=== PATIENT | female | born 1955 | race Caucasian/White ===

== ENCOUNTER 2018-11-26 16:09 | Emergency (ER) | payer BC ==
--- NOTE | 2018-11-26 17:10 | ED ---
Throat Pain/Nasal Congestion - HPI Summary HPI Summary: This patient is an otherwise healthy 63-year-old female with no past medical history who presents to the ED with a mass to the R side of the neck betweeen the submandibular and tonsillar space. The symptoms have been present 1 week. The area has been enlarging and now is concerning for her. She denies any pain with swallowing. She denies any night sweats, fevers, chills. She denies any dysphagia or odynophagia. Denies any SOB or CP. She states she has been feeling otherwise well. She does not wear dentures and has never had dental abscesses. Denies any drooling, wheezing, nasal or sinus discomfort. Denies any muffled voice, however has noted some voice changes. - History of Current Complaint Chief Complaint: EDThroatPain Time Seen by Provider: 11/26/18 16:28 Hx Obtained From: Patient Onset/Duration: Sudden Onset Severity: Moderate Associated Signs And Symptoms: Negative: Dysphagia, Drooling, Wheezing, Sinus Discomfort, Nasal Discharge - Epiglottits Risk Factors Epiglottis Risk Factors: Negative - Allergies/Home Medications Allergies/Adverse Reactions: Allergies Allergy/AdvReac Type Severity Reaction Status Date / Time No Known Allergies Allergy Verified 11/26/18 16:16 Home Medications: Home Medications Ascorbic Acid TAB* [Vitamin C TAB*] 500 mg PO DAILY 11/26/18 [History Confirmed 11/26/18] Ferrous Gluconate [Iron] 236 mg PO DAILY 11/26/18 [History Confirmed 11/26/18] Glucosamine Sulfate [Sangita] 1,500 mg PO DAILY 11/26/18 [History Confirmed ] PMH/Surg Hx/FS Hx/Imm Hx Previously Healthy: Yes Endocrine/Hematology History: Denies: Hx Diabetes, Hx Thyroid Disease Cardiovascular History: Denies: Hx Hypertension Respiratory History: Denies: Hx Asthma, Hx Chronic Obstructive Pulmonary Disease (COPD) GI History: Denies: Hx Ulcer - Surgical History Surgery Procedure, Year, and Place: appy - Immunization History Hx Pertussis Vaccination: No Immunizations Up to Date: Yes Infectious Disease History: No Infectious Disease History: Denies: Hx Clostridium Difficile, Hx Hepatitis, Hx Human Immunodeficiency Virus (HIV), Hx of Known/Suspected MRSA, Hx Shingles, Hx Tuberculosis, Hx Known/ Suspected VRE, Hx Known/Suspected VRSA, History Other Infectious Disease, Traveled Outside the [place] in Last 30 Days - Family History Known Family History: Positive: None - Social History Occupation: Unemployed Lives: With Family Alcohol Use: None Hx Substance Use: No Substance Use Type: Reports: None Hx Tobacco Use: Yes Smoking Status (MU): Former Smoker Review of Systems Negative: Fever, Chills, Fatigue, Skin Diaphoresis Cardiovascular: Other - right sided neck mass without pain Negative: Palpitations, Chest Pain Negative: Shortness Of Breath, Cough Genitourinary: Negative Positive: no symptoms reported, see HPI Negative: Arthralgia, Myalgia Skin: Negative Neurological: Negative All Other Systems Reviewed And Are Negative: Yes Physical Exam Triage Information Reviewed: Yes Vital Signs On Initial Exam: Initial Vitals Temp Pulse Resp BP Pulse Ox 98.4 F 91 12 172/100 98 11/26/18 16:13 11/26/18 16:13 11/26/18 16:13 11/26/18 16:13 11/26/18 16:13 Vital Signs Reviewed: Yes Appearance: Positive: Well-Appearing, Well-Nourished Skin: Positive: Warm, Skin Color Reflects Adequate Perfusion Head/Face: Positive: Normal Head/Face Inspection Eyes: Positive: EOMI, Conjunctiva Clear ENT: Positive: Hoarse voice, Uvula midline. Negative: Pharyngeal erythema, Nasal congestion, Nasal drainage, Tonsillar swelling, Tonsillar exudate, Muffled voice, Dental tenderness, Sinus tenderness Neck: Positive: Supple, Nontender, Enlarged Nodes @ - tonsillar and submandibular Respiratory/Lung Sounds: Positive: Clear to Auscultation, Breath Sounds Present Cardiovascular: Positive: RRR, Pulses are Symmetrical in both Upper and Lower Extremities Musculoskeletal: Positive: Normal, Strength/ROM Intact Neurological: Positive: Sensory/Motor Intact, Alert, Oriented to Person Place, Time, Speech Normal - patient endorses lower voicec/no muffled voice Psychiatric: Positive: Normal, Affect/Mood Appropriate AVPU Assessment: Alert Diagnostics - Vital Signs Vital Signs Temp Pulse Resp BP Pulse Ox 11/26/18 16:13 98.4 F 91 12 172/100 98 - Laboratory Result Diagrams: 11/26/18 18:03 11/26/18 18:03 Lab Statement: Any lab studies that have been ordered have been reviewed, and results considered in the medical decision making process. EENT Course/Dx - Course Course Of Treatment: During the course of treatment, the patient's evaluated for right-sided neck mass. Denies any other complaints or concerns. US obtained: The 3.3 right level to mass is suspicious for metastatic lymphadenopathy. CT neck recommended. Patient is signed out to PAWAN Camacho pending CT. - Diagnoses Provider Diagnoses: Laryngeal mass Discharge - Sign-Out/Discharge Documenting (check all that apply): Sign-Out Patient Signing out patient TO: Elaine Jack Patient Received Moderate/Deep Sedation with Procedure: No - Discharge Plan Condition: Good Disposition: HOME Referrals: [facility] [Outside] Philippe Mendoza MD [Medical Doctor] - Additional Instructions: You need to call ENT office wednesday morning for follow up establish care with primary Return to ED if develop any difficulty breathing, swallowing or any new or worsening symptoms - Billing Disposition and Condition Condition: GOOD Disposition: Home
[2018-11-26 17:33] LABS: Rapid Strep Molecular Negative (Negative)
[2018-11-26 18:11] LABS: ABS Lymphocytes 1.3 10^3/ul (1.0-4.8); ABS Monocytes 0.4 10^3/ul (0-0.8); ABS Neutrophils 3.2 10^3/ul (1.5-7.7); Eosinophil % 0.8 %; Hematocrit 39 % (35-47); Hemoglobin 13.7 g/dL (12.0-16.0); Mean Corpuscular HGB Conc 35 g/dL (31-36); Mean Corpuscular Hemoglobin 33 pg (27-31); Mean Corpuscular Volume 94 fL (80-97); Mean Platelet Volume 8.1 fL (7.4-10.4); Nucleated Red Blood Cells % 0.1; Platelet Count 230 10^3/uL (150-450); Red Blood Count 4.11 10^6 /uL (3.70-4.87); Red Cell Distribution Width 12 % (10-15); White Blood Count 4.9 10^3/uL (3.5-10.8)
[2018-11-26 18:25] LABS: ALT 16 U/L (7-52); AST 23 U/L (13-39); Albumin 4.6 g/dL (3.2-5.2); Albumin/Globulin Ratio 1.4 (1-3); Alkaline Phosphatase 61 U/L (34-104); Anion Gap 7 mmol/L (2-11); Blood Urea Nitrogen 12 mg/dL (6-24); C Reactive Protein < 1.00 mg/L (<8.01); CO2 Carbon Dioxide 26 mmol/L (22-32); Calcium 9.9 mg/dL (8.6-10.3); Chloride 104 mmol/L (101-111); EGFR African American 115.1 (>60); EGFR Non-African American 95.1 (>60); Globulin 3.4 g/dL (2-4); Glucose 106 mg/dL (70-100); Potassium 3.9 mmol/L (3.5-5.0); Sodium 137 mmol/L (135-145)
[2018-11-26] MEDS ORDERED: Iohexol 300* (CONTRAST) 10 ML SDV IV ONE (18:39)
--- NOTE | 2018-11-26 20:02 | ED ---
Progress - Progress Note Progress Note: patient signed out by Adela VILLALTA pending CT for dispo CT shows: IMPRESSION: 1. Large right super laryngeal mass is centered in the hypopharynx obliterating the right piriform sinus direct extension laterally into the right neck encasing the proximal right internal and external carotid arteries and distal flow within the deep aspect of the right sternocleidomastoid muscle and is probably of pharyngeal origin. There is right cervical adenopathy many large nodes adjacent to the mass and is consistent with malignancy. There is slight enlargement of the posterior aspect of the oropharynx with involvement of the right aryepiglottic fold and obliteration of the right piriform sinus and slight extension anteriorly along the superior margin of the thyroid cartilage. 2. Degenerative spondylosis of the cervical spine with varying degrees of spinal and neural foraminal stenosis. Course/Dx - Course Course Of Treatment: During the course of treatment, the patient's evaluated for right-sided neck mass. u/s showed suspicious mass so CT was ordered CT shows layngeal mass. discussed with dr peck who says to have call office wednesday. patient no difficulty breathing or swallowing. no signs of resp distress. explained results with patient. discussed importance of follow up. patient understand and agrees with plan. - Diagnoses Provider Diagnoses: Laryngeal mass Discharge - Sign-Out/Discharge Documenting (check all that apply): Patient Departure, Receiving Sign-Out Receiving patient FROM: Adela Small Patient Received Moderate/Deep Sedation with Procedure: No - Discharge Plan Condition: Good Disposition: HOME Referrals: Philippe Peck MD [Medical Doctor] - [facility] [place] [facility] [place]] Additional Instructions: You need to call ENT office wednesday morning for follow up establish care with primary Return to ED if develop any difficulty breathing, swallowing or any new or worsening symptoms - Billing Disposition and Condition Condition: GOOD Disposition: Home
[2018-11-26 21:19] VITALS: BP 150/100
== END 2018-11-26 21:07 | disposition home or self-care (01) ==
LOC: ED 16:09
DX: J38.7 Other diseases of larynx (principal); M47.892 Other spondylosis, cervical region; M48.02 Spinal stenosis, cervical region; Z87.891 Personal history of nicotine dependence
CPT/HCPCS: 36415; 70491; 76536; 80053; 85025; 86140; 87651; 99282; Q9967

== ENCOUNTER 2019-01-09 11:34 | Observation (INO) | payer BC ==
[2019-01-09] MEDS ORDERED: fentaNYL* 50 MCG/ML 2 ML VIAL (100 MCG VIAL) ONE (12:57)
[2019-01-09] MEDS ORDERED: Midazolam* 1 MG/ML 10 ML VIAL (10 MG) ONE (12:57)
[2019-01-09] MEDS ORDERED: ceFAZolin 2 GM PREMIX in ORs 2 GM/50 ML BAG ONE (13:51)
--- NOTE | 2019-01-09 15:25 | PRO ---
CC: Dr. Jaffe; Dr. Montanez * DATE OF PROCEDURE: 01/09/19 - ROOM #402 PROCEDURE: EGD with PEG tube placement. INDICATION: Dysphagia, odynophagia, head and neck cancer. REFERRING PHYSICIAN: Dr. Jaffe and Dr. Montanez. MEDICATIONS GIVEN: 1. Cefazolin 2 g IV prior to the procedure. 2. 100 mcg IV fentanyl. 3. 10 mg IV Versed. 4. 1% lidocaine for local anesthetic. PROCEDURE IN DETAIL: After the EGD procedure including PEG tube placement was explained to the patient including the risks, benefits, and alternatives, not limited to perforation, surgery and/or were explained to the patient, written consent was then obtained, IV medication was given, and a bite-block was placed between the teeth. An Olympus gastroscope was then inserted into the patient's mouth, advanced down the esophagus, into the stomach, and into the distal duodenum. No abnormalities were seen. The scope was then withdrawn into the stomach, where I insufflated CO2. I tried transillumination, however, I was unable to see the light. However, there was pretty good finger indentation approximately 5 fingerbreadths below and 5 to the left. I moved a little bit more medially and the finger indentation improved. At that point, I marked the spot, cleaned the skin, and using 1% lidocaine on a very small finder needle inserted into the patient's abdominal wall. It easily entered into the stomach cavity. Bubbles of air were then seen. The finder needle was then withdrawn. Approximately 2 to 3 cc of 1% lidocaine were used to anesthetize the tract. A larger trocar needle that was then placed through the exact same location after finger indentation again confirmed proper good placement. The trocar needle came immediately into the stomach. A blue wire was then placed through the trocar needle, grasped the snare and withdrawn from the patient. The PEG tube was then tied onto the end of the blue wire and it was successfully pulled into place. Prior to the procedure when I was navigating the scope through her esophagus and into her stomach, there was some mild hyperemia of the mucosa likely secondary to her radiation. When I performed a second look endoscopy, there were some mucosal hemorrhages in the upper esophagus and in the mid body of the esophagus likely secondary to the bumper being pulled down through this area and causing some irritation and bleeding. There was no active bleeding seen. The PEG tube was in proper position within her stomach. The scope was then withdrawn from the patient. She tolerated the procedure well and will be admitted to the hospital as per my routine protocol. IMPRESSION: 1. Complete upper endoscopy to the distal duodenum with successful PEG tube placement. 2. PEG tube placement. 3. She will be admitted to the hospital for pain control, nutrition consult, PEG tube teaching by the nursing staff. If all goes according to plan, she can be discharged tomorrow morning after having been seen by GI. [id number]/[facility] #: [id number] BERNARDO
[2019-01-09] MEDS ORDERED: Ondansetron INJ* 2 MG/ML VIAL IV PRN (15:39)
[2019-01-09] MEDS ORDERED: Morphine INJ* 2 MG/ML 1 ML SYRINGE (TWO MG - NEW SYRINGE VERSION) IV PRN (15:39)
[2019-01-09] MEDS ORDERED: Acetaminophen TAB* 325 MG PO PRN (15:39)
[2019-01-09] MEDS ORDERED: Acetaminophen TAB* 325 MG ONE (16:22)
[2019-01-09] MEDS ORDERED: Lidocaine 2% VISCOUS* 15 ML UDC SWISH SPIT PRN (16:27)
--- NOTE | 2019-01-09 16:33 | PN ---
Progress Note - Progress Note Date of Service: 01/09/19 Note: 23 hr OBV re: dysphagia, s/p PEG tube today, needs nutrition consult, pain control with IV since NPO, PEG teaching EGD with PEG was successful; esophagus is friable d/t XRT admit orders in; has pain control, IVF; will be NPO until cleared by Dr Christianson on Wednesday am Greg Ortiz MD [facility] [phone]
[2019-01-09] MEDS: NS 0.9% 1000 ML** 1,000 ML IV SCH (17:31)
[2019-01-09] MEDS: Gabapentin CAP(*) 300 MG PO SCH (20:44)
[2019-01-10 05:42] LABS: ABS Eosinophils 0.1 10^3/ul (0-0.6); ABS Lymphocytes 0.2 10^3/ul (1.0-4.8); ABS Monocytes 0.4 10^3/ul (0-0.8); ABS Neutrophils 1.5 10^3/ul (1.5-7.7); Eosinophil % 2.4 %; Hematocrit 29 % (35-47); Hemoglobin 10.6 g/dL (12.0-16.0); Lymphocyte % 10.8 %; Mean Corpuscular HGB Conc 36 g/dL (31-36); Mean Corpuscular Hemoglobin 34 pg (27-31); Mean Corpuscular Volume 93 fL (80-97); Mean Platelet Volume 6.8 fL (7.4-10.4); Platelet Count 132 10^3/uL (150-450); Red Blood Count 3.15 10^6 /uL (3.70-4.87); Red Cell Distribution Width 12 % (10-15); White Blood Count 2.1 10^3/uL (3.5-10.8)
[2019-01-10] MEDS: NS 0.9% 1000 ML** 1,000 ML IV SCH (05:58)
[2019-01-10] MEDS: Gabapentin CAP(*) 300 MG PO SCH (08:15)
[2019-01-10 09:27] LABS: Albumin 3.4 g/dL (3.2-5.2); Calcium 8.5 mg/dL (8.6-10.3); Potassium 3.9 mmol/L (3.5-5.0); Total Bilirubin 0.7 mg/dL (0.2-1.0)
[2019-01-10 09:33] LABS: Albumin/Globulin Ratio 1.6 (1-3); BUN/Creatinine Ratio 15.4 (8-20); EGFR African American 143.7 (>60); EGFR Non-African American 118.7 (>60); Globulin 2.1 g/dL (2-4); Total Protein 5.5 g/dL (6.4-8.9)
[2019-01-10] MEDS ORDERED: NS 0.9% 1000 ML** 1,000 ML IV ONE (11:36)
[2019-01-10] MEDS ORDERED: Dexamethasone IV* 4 MG/ML 5 ML VIAL (20 MG) ONE (12:49)
[2019-01-10] MEDS ORDERED: Dexamethasone IV* 12 MG in PREMIX* 0 ML IVPB ONE (13:00)
[2019-01-10] MEDS ORDERED: OLANzapine TAB* 5 MG PO ONE (13:00)
[2019-01-10] MEDS ORDERED: APREPITANT IV* 130 MG in PREMIX* 0 ML IV ONE (13:00)
[2019-01-10] MEDS ORDERED: Palonosetron* 0.25 MG in PREMIX* 0 ML IV ONE (13:00)
[2019-01-10 13:16] LABS: Magnesium 1.7 mg/dL (1.9-2.7)
[2019-01-10] MEDS ORDERED: CISPLATIN IVPB ONE (14:00)
[2019-01-10] MEDS ORDERED: NS 0.9% IVPB ONE (14:00)
[2019-01-10 14:14] VITALS: BP 110/61
--- NOTE | 2019-01-10 22:27 | DS ---
DISCHARGE SUMMARY: DATE OF ADMISSION: 01/09/19 DATE OF DISCHARGE: 01/10/19 PRIMARY DISCHARGE DIAGNOSES: 1. Pharyngeal carcinoma. 2. Status post PEG tube placement. This 63-year-old woman had a PEG tube placed yesterday. She had initiated radiation treatment and chemotherapy 3 weeks ago. Chemotherapy rounds are to occur every 3 weeks and were delayed 24 hours to allow for the PEG tube to be placed. PEG placement was apparently successful yesterday. There was little bit of esophageal irritation. This morning, she feels generally well. She has no fever. Pulse is 81 and blood pressure 110/61. Examination of the abdomen shows PEG tube exiting at about 6 cm in the upper abdomen just to the left of midline. There was some tenderness in the area around the tube, but no discoloration, no bleeding. Bowel sounds are present. She had not passed any gas or stool. It appeared appropriate to began a diet. As per the previous plan between Dr. Ortiz and the oncology service, she will be receiving chemotherapy later today. Her current counts as of today were white count 2.1, hemoglobin 10.6, hematocrit 29, platelets 132 and this is known to the oncology service. LFTs are normal. She is not needing the tube for hydration or nutrition at the moment, but it is immediately available. Followup - will be with the oncology office. Her usual medications have not been changed. [id number]/[facility] #: [id number] MTDD
== END 2019-01-10 17:45 | disposition home or self-care (01) ==
LOC: ENDO 11:34 → MED 17:07
PROVIDERS: ADMIT Internal Medicine Gastroenterology; ATTEND Internal Medicine Gastroenterology
DX: C14.0 Malignant neoplasm of pharynx, unspecified (principal); R13.14 Dysphagia, pharyngoesophageal phase; Z92.21 Personal history of antineoplastic chemotherapy
CPT/HCPCS: 36415; 80053; 83735; 85025; 99156; 99157; A9270-GY; G0378; J0185; J0690; J1100; J2250; J2469; J3010; J9060

== ENCOUNTER 2019-02-02 20:13 | Inpatient (IN) | payer BC ==
--- OUTSIDE RECORDS SUMMARY | 2019-02-02 20:32 | XMS REPORT | Continuity of Care Document ---
:1955 External Reference #:[id number] Author Name Greg Ortiz MD Address [facility] [place] [address] Care Team Providers Name Role Phone Wero Montanez MD - Radiation Oncology Care Team Information Lot Boss Unavailable Problems Active Problems Provider Date Esophageal dysphagia Greg Ortiz MD Onset: 01/04/2019 Social History Type Date Description Comments Sex Unknown Tobacco Use Start: Unknown End: Unknown Patient is a former smoker Smoking Status Reviewed: 01/04/19 Patient is a former smoker Allergies, Adverse Reactions, Alerts Description No Known Drug Allergies Medications Active Medications SIG Qnty Indications Ordering Provider Date Cecilia Arambula NP [id number] Suspension Magnesium Oxide Take 1 Tablet By Unknown 400mg Mouth Twice Daily Tablets Immunizations Description No Information Available Vital Signs Date Vital Result Comment 01/04/2019 9:29am Height 67 inches 5'7" Weight 131.00 lb BP Systolic 132 mmHg BP Diastolic 73 mmHg Heart Rate 83 /min BMI (Body Mass Index) 20.5 kg/m2 Results Description No Information Available Procedures Description No Information Available Medical Devices Description No Information Available Encounters Description No Information Available Assessments Date Code Description Provider 01/04/2019 R13.14 Dysphagia, pharyngoesophageal phase Greg Ortiz MD Plan of Treatment 01/04/2019 - Greg Ortiz, MDR13.14 Dysphagia, pharyngoesophageal phaseComments:RISKS AND BENEFITS OF THE PROCEDURE WERE DISCUSSED WITH PATIENT. I had a very long discussion with the patient regarding her symptoms we discussed the PEG tube the rationale behind the PEG tube in detail she does need a feeding tube I will make arrangements for it as soon as possible. She understands she will be admitted to the hospital afterwards Functional Status Description No Information Available Mental Status Description No Information Available Referrals Description No Information Available
--- OUTSIDE RECORDS SUMMARY | 2019-02-02 20:32 | XMS REPORT | Continuity of Care Document ---
:1955 External Reference #:[id number] Author Name Philippe Mednoza MD Address [address] [place] [address] Problems Active Problems Provider Date Localized swelling, mass and lump, neck Philippe Mendoza MD Onset: 11/28/2018 Difficulty speaking Philippe Mendoza MD Onset: 11/28/2018 Social History Type Date Description Comments Sex Unknown Tobacco Use Start: Unknown Current Cigarette Smoker Tobacco Use Start: Unknown Never Smoked Cigars Tobacco Use Start: Unknown Never Smoked A Pipe Smokeless Tobacco Never Used Smokeless Tobacco ETOH Use Denies alcohol use Allergies, Adverse Reactions, Alerts Description No Known Drug Allergies Medications Description No Active Medications Immunizations Description No Information Available Vital Signs Date Vital Result Comment 12/12/2018 10:01am Weight 134.00 lb Weight 60.782 kg Height 65 inches 5'5" Height in cm's 165.1 cm BMI (Body Mass Index) 22.3 kg/m2 11/28/2018 11:44am Weight 134.00 lb Weight 60.782 kg Height 65 inches 5'5" Height in cm's 165.1 cm BMI (Body Mass Index) 22.3 kg/m2 Results Test Date Facility Test Result H/L Range Note Laboratory test 11/28/2018 [facility] Cytology SEE RESULT 1 finding c/o [facility] of Laboratories [employer] [place] [address] [phone] 1 SEE RESULT BELOW Name: DEEPA MAN : [address]: Atilio Mendoza MD Acct: [id number] Unit: [id number] AGE: 63 Location: LAB Re11/28/18 SEX: F Status: REG REF SPEC: [id number] TRICIA: 11/28/[address]: Atilio Mendoza MD REQ: [id number] RECD: 11/28/18-140 STATUS: FRANCIS ROBLEDO DR: Sander Ortiz MD _ ORDERED: FNA INTERP RPT, FNA BY PALP, LEVEL 4, CYTO ADEQ-1ST P, IMMUNO-FIRST , IMMUNO-ADDL/3 FINAL DIAGNOSIS Neck, right, fine needle aspiration by palpation: --Malignant. --Metastatic Squamous cell carcinoma. Comment: The aspirate smears are abundantly cellular and demonstrates cohesive cytologically malignant epithelial elements demonstrating ample variable cytoplasm with focal keratinization and moderate to marked nuclear pleomorphism. Background demonstrates lymphoid elements, connective tissue and muscle. The following immunohistochemical stains were performed with appropriate controls on formalin fixed cell block material CK 5/6 strong positive P63 strong positive P16 (HPV) negative Melan-A negative. The morphologic features and immunohistochemical stains support the above rendered diagnosis. Correlation with clinical and imaging findings will be most helpful in identifying a primary source of this metastatic neoplasm. CONTINUED ON NEXT PAGE DEPARTMENT OF PATHOLOGY, [address] [place] [address] Sander Ortiz M.D. Director [facility] # [id number] RUN DATE: 11/29/18 [facility] LAB LIVE PAGE 2 Patient: DEEPA MAN [id number] (Continued) SPECIMEN COMMENTS (Continued) The procedure was explained to and understood by the patient. Signed consent was obtained and a time out procedure was performed at the bedside to verify patient identity and biopsy site. Fine needle aspiration biopsy was performed times 2 with a 25 gauge needle on 2.5 cm firm fixed right upper neck mass. Adequacy was assessed by fast stain technique. The procedure was tolerated well without complications. A cell block was prepared in the evaluation of this specimen. Smears and cell block reveal similar findings. 1. NECK - RIGHT UPPER NECK MASS FINE NEEDLE ASPIRATION BY PALPATION CLINICAL HISTORY 2.5 cm firm fixed right upper neck mass. IMMEDIATE INTERPRETATION Passes 1 2-adequate GROSS DESCRIPTION Fine needle aspiration by palpation x 2 passes with 2 alcohol fixed slide(s) and needle rinse in formalin for cell block. Signed by and Reported on: Sander Ortiz MD 10/12 1535 END OF REPORT DEPARTMENT OF PATHOLOGY, [address] [place] [address] Sander Ortiz M.D. Director [facility] # [id number] Procedures Date Code Description Status 11/28/2018 31699 Fiberoptic Laryngoscopy Completed Medical Devices Description No Information Available Encounters Type Date Location Provider Dx Diagnosis Office Visit 12/12/2018 [place] Philippe Mendoza C32.1 Malignant neoplasm 10:30a 04/26/07 MD of supraglottis R22.1 Localized swelling, mass and lump, neck Office Visit 11/28/2018 11:30a [place] Philippe Mendoza R22.1 Localized 04/26/07 swelling, mass and lump, neck R49.0 Dysphonia Assessments Date Code Description Provider 12/12/2018 C32.1 Malignant neoplasm of supraglottis Philippe Mendoza MD 12/12/2018 R22.1 Localized swelling, mass and lump, neck Philippe Mendoza MD 11/30/2018 C32.1 Malignant neoplasm of supraglottis Philippe Mendoza MD 11/28/2018 R22.1 Localized swelling, mass and lump, neck Philippe Mendoza MD 11/28/2018 R49.0 Dysphonia Philippe Mendoza MD Plan of Treatment Future Appointment(s):12/16/2018 9:15 am - Philippe Mendoza MD at [place] - Philippe Mendoza MDC32.1 Malignant neoplasm of supraglottisComments:Patient is here for discussion of the management of 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 I discussed at length radiation therapy, chemotherapy and options of treatment with surgical management she is going to proceed with further evaluation with PET scan and will have a treatment option of radiation and chemotherapy recheck back after completion of therapy.R22.1 Localized swelling, mass and lump, neck Functional Status Description No Information Available Mental Status Description No Information Available Referrals Refer to Reason for Referral Status Appt Date Wero Montanez M.D. Metastatic CA Closed 12/07/2018 [facility] [place] Radiation Oncology [address] [place] [address] [phone]
[2019-02-02] MEDS ORDERED: NS 0.9% 1000 ML** 1,000 ML IV ONE (22:27)
[2019-02-02] MEDS ORDERED: Ondansetron INJ* 2 MG/ML VIAL IV ONE (22:27)
[2019-02-02 22:38] LABS: ABS Lymphocytes 0.1 10^3/ul (1.0-4.8); ABS Monocytes 0.4 10^3/ul (0-0.8); ABS Neutrophils 2.1 10^3/ul (1.5-7.7); Eosinophil % 0.1 %; Hematocrit 24 % (35-47); Hemoglobin 8.7 g/dL (12.0-16.0); Lymphocyte % 3.6 %; Mean Corpuscular HGB Conc 36 g/dL (31-36); Mean Corpuscular Hemoglobin 35 pg (27-31); Mean Corpuscular Volume 95 fL (80-97); Mean Platelet Volume 7.2 fL (7.4-10.4); Platelet Count 218 10^3/uL (150-450); Red Blood Count 2.52 10^6 /uL (3.70-4.87); Red Cell Distribution Width 15 % (10-15); White Blood Count 2.6 10^3/uL (3.5-10.8)
[2019-02-02 22:48] LABS: ALT 21 U/L (7-52); AST 22 U/L (13-39); Albumin 3.5 g/dL (3.2-5.2); Albumin/Globulin Ratio 1.3 (1-3); Alkaline Phosphatase 54 U/L (34-104); Anion Gap 7 mmol/L (2-11); BUN/Creatinine Ratio 35.1 (8-20); Blood Urea Nitrogen 26 mg/dL (6-24); C Reactive Protein 3.01 mg/L (<8.01); CO2 Carbon Dioxide 34 mmol/L (22-32); Calcium 8.6 mg/dL (8.6-10.3); Chloride 91 mmol/L (101-111); EGFR African American 95.6 (>60); Globulin 2.6 g/dL (2-4); Glucose 111 mg/dL (70-100); Magnesium 1.1 mg/dL (1.9-2.7); Potassium 3.2 mmol/L (3.5-5.0); Sodium 132 mmol/L (135-145); Total Protein 6.1 g/dL (6.4-8.9)
[2019-02-02] MEDS ORDERED: Magnesium Sulf 4 GM/100 ML IV* 4,000 MG/100 ML BAG IVPB ONE (22:51)
--- NOTE | 2019-02-02 22:55 | ED ---
Complex/Multi-Sys Presentation - HPI Summary HPI Summary: Pt is a 63 y/o F w hx throat cancer on chemo, G tube, presenting to the ED for a chief complaint of nausea and vomiting which worsened the night of 02/01/19. Pt previously took Zofran for nausea with no relief. Pt states she cannot keep any food down so she has only had water. Pt denies fever, diarrhea, abdominal pain, or changes in bowel movements. Pt last had a chemotherapy treatment on 11/11 for a diagnosis of throat cancer. Pt has had 3 chemo treatments since initial diagnosis. Pt has a radiation therapy session on 02/03/19. During previous chemotherapy sessions, pt denies vomiting during previous sessions. Pt has a G tube and gets most of nutrition and medications through her tube. She has not put anything in tube today 2/2 nausea/vomiting. Pt sees Dr. Jaffe in oncology. - History Of Current Complaint Chief Complaint: EDNauseaVomitDiarrh Time Seen by Provider: 02/02/19 22:19 Hx Obtained From: Patient Onset/Duration: Sudden Onset, Still Present Timing: Constant Severity Currently: Moderate Severity Initially: Moderate Associated Signs And Symptoms: Positive: Nausea, Vomiting, Other - Negative changes in bowel movements. Negative: Diarrhea, Abdominal Pain, Fever - Allergies/Home Medications Allergies/Adverse Reactions: Allergies Allergy/AdvReac Type Severity Reaction Status Date / Time No Known Allergies Allergy Verified 11/26/18 16:16 PMH/Surg Hx/FS Hx/Imm Hx Previously Healthy: Yes Endocrine/Hematology History: Denies: Hx Diabetes, Hx Thyroid Disease Cardiovascular History: Denies: Hx Hypertension Respiratory History: Denies: Hx Asthma, Hx Chronic Obstructive Pulmonary Disease (COPD) GI History: Denies: Hx Ulcer Sensory History: Denies: Hx Contacts or Glasses, Hx Hearing Aid Opthamlomology History: Denies: Hx Contacts or Glasses, Hx Legally Blind EENT History: Denies: Hx Deafness - Cancer History Cancer Type, 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 - Surgical History Surgical History: Yes Surgery Procedure, Year, and Place: appy Infectious Disease History: No Infectious Disease History: Denies: Hx Clostridium Difficile, Hx Hepatitis, Hx Human Immunodeficiency Virus (HIV), Hx of Known/Suspected MRSA, Hx Shingles, Hx Tuberculosis, Hx Known/ Suspected VRE, Hx Known/Suspected VRSA, History Other Infectious Disease, Traveled Outside the [place] in Last 30 Days - Family History Known Family History: Negative: Diabetes - Social History Alcohol Use: None Hx Substance Use: No Substance Use Type: Reports: None Hx Tobacco Use: Yes Smoking Status (MU): Former Smoker Review of Systems Negative: Fever Positive: Vomiting, Nausea. Negative: Abdominal Pain, Diarrhea All Other Systems Reviewed And Are Negative: Yes Physical Exam - Summary Physical Exam Summary: Constitutional: Chronically ill-appearing, Alert. (-) Distressed Skin: Warm, Dry HENT: Normocephalic; Atraumatic. Mild posterior pharynx erythema Eyes: Conjunctiva normal Neck: Musculoskeletal ROM normal neck. (-) JVD, (-) Stridor, (-) Nuchal rigidity Cardio: Rhythm regular, rate normal, Heart sounds normal; Intact distal pulses; Radial pulses are 2+ and symmetric. (-) Murmur Pulmonary/Chest wall: Effort normal. (-) Respiratory distress, (-) Wheezes, (-) Rales Abd: Soft, (-) tenderness, (-) Distension, (-) Guarding, (-) Rebound. G tube site that is non-tender Musculoskeletal: (-) Edema Lymph: (-) Cervical adenopathy Neuro: Alert, Oriented x3 Psych: Mood and affect Normal Triage Information Reviewed: Yes Vital Signs On Initial Exam: Initial Vitals Temp Pulse Resp BP Pulse Ox 99.2 F 90 16 133/88 97 02/02/19 20:15 02/02/19 20:15 02/02/19 20:15 02/02/19 20:15 02/02/19 20:15 Vital Signs Reviewed: Yes Procedures - Sedation Patient Received Moderate/Deep Sedation with Procedure: No Diagnostics - Vital Signs Vital Signs Temp Pulse Resp BP Pulse Ox 02/02/19 20:15 99.2 F 90 16 133/88 97 - Laboratory Lab Results: Lab Results 02/02/19 02/02/19 Range/Units 22:24 22:24 WBC 2.6 L (3.5-10.8) 10^3/uL RBC 2.52 L (3.70-4.87) 10^6 /uL Hgb 8.7 L (12.0-16.0) g/dL Hct 24 L (35-47) % MCV 95 (80-97) fL MCH 35 H (27-31) pg MCHC 36 (31-36) g/dL RDW 15 (10-15) % Plt Count 218 (150-450) 10^3/uL MPV 7.2 L (7.4-10.4) fL Neut % (Auto) 81.4 % Lymph % (Auto) 3.6 % [place] % (Auto) 14.9 % Eos % (Auto) 0.1 % Baso % (Auto) 0.0 % Absolute Neuts (auto) 2.1 (1.5-7.7) 10^3/ul Absolute Lymphs (auto) 0.1 L (1.0-4.8) 10^3/ul Absolute Monos (auto) 0.4 (0-0.8) 10^3/ul Absolute Eos (auto) 0.0 (0-0.6) 10^3/ul Absolute Basos (auto) 0.0 (0-0.2) 10^3/ul Absolute Nucleated RBC 0.0 10^3/ul Nucleated RBC % 0.0 Sodium 132 L (135-145) mmol/L Potassium 3.2 L (3.5-5.0) mmol/L Chloride 91 L (101-111) mmol/L Carbon Dioxide 34 H (22-32) mmol/L Anion Gap 7 (2-11) mmol/L BUN 26 H (6-24) mg/dL Creatinine 0.74 (0.51-0.95) mg/dL Est GFR ( Amer) 95.6 (>60) Est GFR (Non-Af Amer) 79.0 (>60) BUN/Creatinine Ratio 35.1 H (8-20) Glucose 111 H (70-100) mg/dL Calcium 8.6 (8.6-10.3) mg/dL Magnesium 1.1 L (1.9-2.7) mg/dL Total Bilirubin 0.80 (0.2-1.0) mg/dL AST 22 (13-39) U/L ALT 21 (7-52) U/L Alkaline Phosphatase 54 (34-104) U/L C-Reactive Protein 3.01 (<8.01) mg/L Total Protein 6.1 L (6.4-8.9) g/dL Albumin 3.5 (3.2-5.2) g/dL Globulin 2.6 (2-4) g/dL Albumin/Globulin Ratio 1.3 (1-3) Lipase < 10 L (11.0-82.0) U/L Result Diagrams: 02/02/19 22:24 02/02/19 22:24 Lab Statement: Any lab studies that have been ordered have been reviewed, and results considered in the medical decision making process. Complex Multi-Symp Course/Dx Course Of Treatment: 63 y/o F w hx throat cancer on active chemo/rad p/w n/v. - Physical exam with dry mucous membranes, mildly erythematous posterior oropharynx. Abdomen soft. Suspect secondary to chemotherapy. We'll give IV fluids and Zofran and check electrolytes. Mg 1.1, given 4 mg, K 3.2 given 40 IV. admit [place] [facility] [place] and electrolyte abnormalities. - Diagnoses Provider Diagnoses: Vomiting, Dehydration, Hypomagnesemia Discharge ED - Sign-Out/Discharge Documenting (check all that apply): Patient Departure - Admit - Discharge Plan Condition: Stable Disposition: ADMITTED TO [facility] Referrals: [facility] [Outside] - Billing Disposition and Condition Condition: STABLE Disposition: Admitted to [facility] - Attestation Statements Document Initiated by Jessiibe: Yes Documenting Scribe: Elizabeth Kelley Provider For Whom Alicia is Documenting (Include Credential): Kofi Koo MD Scribe Attestation: I, Elizabeth Kelley, scribed for Kofi Koo MD on 02/03/19 at 0220. Scribe Documentation Reviewed: Yes Provider Attestation: The documentation as recorded by the Elizabeth merino accurately reflects the service I personally performed and the decisions made by me, Kofi Koo MD Status of Scribe Document: Viewed Consult Consult: At 23:56, I spoke with Dr. Awan who agrees to admit the pt to [facility] [place].
[2019-02-02] MEDS: KCL 20 MEQ/100 ML IVPREMIX* 20 MEQ/100 ML BAG IV SCH (23:37)
[2019-02-03] MEDS ORDERED: Metoclopramide IV* 5 MG/ML 2 ML VIAL IV PRN (02:02)
[2019-02-03] MEDS: KCL 20 MEQ/100 ML IVPREMIX* 20 MEQ/100 ML BAG IV SCH (02:06)
[2019-02-03] MEDS ORDERED: Metoclopramide IV* 5 MG/ML 2 ML VIAL ONE (02:10)
[2019-02-03 02:41] LABS: Urine Appearance Clear; Urine Bilirubin Negative (Negative); Urine Blood Negative (Negative); Urine Color Yellow; Urine Glucose Negative (Negative); Urine Ketones Negative (Negative); Urine Nitrite Negative (Negative); Urine Protein Negative (Negative); Urine Specific Gravity 1.013 (1.010-1.030); Urine Urobilinogen Negative (Negative)
[2019-02-03] MEDS ORDERED: Lidocaine 2% VISCOUS* 15 ML UDC PO ONE (03:02)
[2019-02-03] MEDS ORDERED: Lidocaine 2% VISCOUS* 15 ML UDC ONE (03:03)
[2019-02-03] MEDS: NS 0.9% 1000 ML** 1,000 ML IV SCH ×3 (03:56→20:07)
--- NOTE | 2019-02-03 04:23 | HP ---
CC: Dr. Serge Jaffe * ADMISSION HISTORY AND PHYSICAL: DATE OF ADMISSION: 02/03/19 CHIEF COMPLAINT: Intractable vomiting. HISTORY OF PRESENT ILLNESS: This is a 63-year-old female with past medical history of hypopharyngeal carcinoma unresectable, has had esophageal dysphagia, recently underwent PEG tube placement, has been started on chemo and radiation since November. Received her last chemotherapy on Wednesday, ever since then she has been having recurrent episodes of vomiting, unable to keep anything down even with the tube feeding that she gets and has not been alleviated by any nausea medications, so finally decided to come to the ER for further evaluation. She otherwise offers no accompanying complaints such as abdominal pain, chest pain, shortness of breath, numbness, tingling, weakness, any urinary dysfunction, fever, or chills. PAST MEDICAL HISTORY: As mentioned, hypopharyngeal carcinoma with esophageal dysfunction, status post G-tube placement in December. Currently, on chemo and radiation. Chemo is every 2 weeks on Wednesday and radiation is Wednesday to Wednesday everyday. PAST SURGICAL HISTORY: She has had multiple endoscopies and she has G-tube placement being the most recent surgical history. HOME MEDICATIONS: The patient is only on nystatin suspension 4 times a day. ALLERGIES: The patient is not allergic to any medications. FAMILY HISTORY: Noncontributory for the current condition. SOCIAL HISTORY: She quit smoking this summer when she was diagnosed with cancer , prior to that only smoked about 2 to 3 cigarettes a day for 20 years. Denies any alcohol or drug use. She lives alone and is full code and her son, Haider, is her surrogate decision maker. REVIEW OF SYSTEMS: A 14-point review of systems did not reveal any new information other than what is stated in the HPI. PHYSICAL EXAMINATION GENERAL: The patient is awake, alert, oriented x3, did not appear to be in any acute respiratory distress. VITAL SIGNS: In the ER, temperature was noted to be 99.2, BP was noted to be 133/88, heart rate 90, respiration rate 16, saturating 97% on room air. HEAD AND NECK: Atraumatic, normocephalic. Bilateral pupils are reactive. Oral mucosa was dry. Neck: Supple. No jugular venous distention. LUNGS: Clear to auscultation bilaterally. No wheezing, rhonchi, or rales. HEART: S1, S2. Regular rate and rhythm. ABDOMEN: There is a G-tube in place with tube feeding still present. The patient may not have flushed it. EXTREMITIES: No cyanosis, clubbing, or edema. LABORATORY DATA: CBC showed WBC of 2.6, hemoglobin of 8.7, hematocrit of 24, platelet count of 218,000. Comprehensive metabolic panel shows sodium minimal decrease at 132, potassium low at 3.7, chloride low at 91, bicarb elevated at 34. BUN elevated at 26, creatinine normal at 0.74, random glucose minimally elevated at 111. Magnesium low at 1.1. LFTs were otherwise within normal limits. IMPRESSION: This is a 63-year-old female with hypopharyngeal carcinoma and dysphagia status post PEG, here due to intractable vomiting severe enough to cause electrolyte abnormalities. ASSESSMENT: 1. Intractable vomiting likely secondary to chemotherapy. Hydrate the patient , IV fluids, potassium and started the patient on Reglan as the patient stated that the Zofran did not work, neither did the Compazine and observe the patient overnight in the hospital. If her symptoms improve, we could consider discharging her on Reglan. 2. Multiple electrolyte abnormalities as mentioned above. I will correct them and replace them. 3. Pancytopenia, especially with low white count and low hemoglobin, likely secondary to recent chemo. Hematology did take over the case in the morning. They can further follow up the patient's repeat CBC and any further recommendation based on Hematology. 4. DVT prophylaxis with sequential compression device. 5. Code status. Full code and son, Haider, is the healthcare proxy. [id number]/CPS #: [id number] MTDD
[2019-02-03] MEDS ORDERED: Melatonin 3 MG TAB PO ONE (05:00)
[2019-02-03 06:22] LABS: ABS Lymphocytes 0.1 10^3/ul (1.0-4.8); ABS Monocytes 0.4 10^3/ul (0-0.8); ABS Neutrophils 2.2 10^3/ul (1.5-7.7); Eosinophil % 0.1 %; Hematocrit 24 % (35-47); Hemoglobin 8.8 g/dL (12.0-16.0); Lymphocyte % 4.4 %; Mean Corpuscular HGB Conc 36 g/dL (31-36); Mean Corpuscular Hemoglobin 35 pg (27-31); Mean Corpuscular Volume 96 fL (80-97); Mean Platelet Volume 7.5 fL (7.4-10.4); Platelet Count 209 10^3/uL (150-450); Red Blood Count 2.55 10^6 /uL (3.70-4.87); Red Cell Distribution Width 16 % (10-15); White Blood Count 2.7 10^3/uL (3.5-10.8)
[2019-02-03 06:35] LABS: BUN/Creatinine Ratio 30.4 (8-20); Calcium 8.4 mg/dL (8.6-10.3); EGFR African American 103.6 (>60); EGFR Non-African American 85.7 (>60); Magnesium 2.1 mg/dL (1.9-2.7); Potassium 3.5 mmol/L (3.5-5.0)
[2019-02-03] MEDS ORDERED: Lorazepam PYXIS KEY PRN (09:35)
--- NOTE | 2019-02-03 09:35 | PN ---
Progress Note - Progress Note Date of Service: 02/03/19 SOAP: Subjective: []Refractory nausea. Started yesterday and will not stop. nausea, vomiting overnight. Had been using PEG tube only, no po. Off tube feeds at this time. Throat not to bad. Has completed XRT Sodium Chloride (Ns 0.9% 1000 Ml) 1,000 mls @ 125 mls/hr IV PER RATE BRIAN Last Admin: 02/03/19 03:56 Dose: 125 mls/hr Dexamethasone Sodium Phosphate (20 mg/ Sodium Chloride) 55 mls @ 210 mls/hr IVPB ONCE ONE Stop: 02/03/19 09:43 Palonosetron 0.25 mg/ Sodium (Chloride) 55 mls @ 165 mls/hr IVPB ONCE ONE Stop: 02/03/19 09:48 Potassium Chloride (Potassium Chloride 10 Meq/50 Ml Ivpremix*) 10 meq in 50 mls @ 50 mls/hr IV Q1H BRIAN Stop: 02/03/19 13:59 Metoclopramide HCl (Reglan Iv*) 10 mg IV Q4H PRN PRN Reason: NAUSEA Last Admin: 02/03/19 02:11 Dose: 10 mg Nystatin (Nystatin Suspension*) 500,000 units PO QID BRIAN Scopolamine (Transderm-Scop 1.5 Mg Patch*) 1 patch TRANSDERM Q72H BRIAN Objective: [] Vital Signs Temp Pulse Resp BP Pulse Ox 0 F 0 0 0/0 0 02/03/19 03:24 02/03/19 03:24 02/03/19 03:24 02/03/19 03:24 02/03/19 03:24 HEENT: Dry and XRT changes, no thrush, not much congestion. CTA RRR S1D2 +BS PEG intact Ext w/o c/c/e Neuro AAOx3 Assessment: []Refectory nausea at completion of XRT and after HD Cis Cy #3. Plan: []1. Continue Hydration and replete K 2. Nausea: - Dex 20 mg IV x 1 and Aloxi 0.25 mg IV x 1 - Scopolamine patch - Hold Reglan, Ativan 1 mg IV prn q8 nausea 3. Hold PEG today, will try and re-start tomorrow 4. Discharge home when feeling better 5. PT/OT tomorrow.
[2019-02-03] MEDS: Nystatin SUSPENSION* 100000 UNITS/ML 5 ML UDC PO SCH ×4 (09:55→20:07)
[2019-02-03] MEDS ORDERED: Dexamethasone IV* 20 MG in NS 0.9% 50 ML* 50 ML IVPB ONE (10:00)
[2019-02-03] MEDS ORDERED: Palonosetron* 0.25 MG in NS 0.9% 50 ML* 50 ML IVPB ONE (10:00)
[2019-02-03] MEDS ORDERED: Dexamethasone IV* 4 MG/ML 5 ML VIAL (20 MG) ONE (10:03)
[2019-02-03] MEDS: Scopolamine 1.5 mg* PATCH TRANSDERM SCH (10:07)
[2019-02-03] MEDS: KCL 10 MEQ/50 ML IVPREMIX* 10 MEQ/50 ML BAG IV SCH ×4 (11:18→15:55)
[2019-02-03] MEDS ORDERED: HYDROmorphone INJ* 0.5 MG/0.5 ML SYRINGE IV SLOW PU PRN (15:59)
[2019-02-03] MEDS: LORazepam INJ* 2 MG/ML 1 ML VIAL IV PUSH PRN (16:22)
[2019-02-03] MEDS: HYDROmorphone INJ1* 1 MG/ML SYRINGE IV SLOW PU PRN (21:40)
[2019-02-04] MEDS: LORazepam INJ* 2 MG/ML 1 ML VIAL IV PUSH PRN ×3 (05:37→20:09)
[2019-02-04] MEDS: HYDROmorphone INJ1* 1 MG/ML SYRINGE IV SLOW PU PRN ×4 (05:38→20:10)
[2019-02-04] MEDS: NS 0.9% 1000 ML** 1,000 ML IV SCH (05:41)
[2019-02-04 06:58] LABS: ABS Lymphocytes 0.1 10^3/ul (1.0-4.8); ABS Monocytes 0.5 10^3/ul (0-0.8); ABS Neutrophils 2.9 10^3/ul (1.5-7.7); Hematocrit 23 % (35-47); Hemoglobin 8.3 g/dL (12.0-16.0); Lymphocyte % 3.6 %; Mean Corpuscular HGB Conc 37 g/dL (31-36); Mean Corpuscular Hemoglobin 35 pg (27-31); Mean Corpuscular Volume 96 fL (80-97); Mean Platelet Volume 7.3 fL (7.4-10.4); Nucleated Red Blood Cells % 0.1; Platelet Count 211 10^3/uL (150-450); Red Blood Count 2.36 10^6 /uL (3.70-4.87); Red Cell Distribution Width 15 % (10-15); White Blood Count 3.5 10^3/uL (3.5-10.8)
[2019-02-04 07:15] LABS: Albumin 3.1 g/dL (3.2-5.2); Albumin/Globulin Ratio 1.2 (1-3); BUN/Creatinine Ratio 39.7 (8-20); Calcium 8.1 mg/dL (8.6-10.3); EGFR African American 126.6 (>60); EGFR Non-African American 104.7 (>60); Globulin 2.5 g/dL (2-4); Magnesium 1.3 mg/dL (1.9-2.7); Potassium 3.2 mmol/L (3.5-5.0); Total Bilirubin 0.6 mg/dL (0.2-1.0); Total Protein 5.6 g/dL (6.4-8.9)
[2019-02-04] MEDS ORDERED: Metoclopramide IV* 5 MG/ML 2 ML VIAL IV PRN (10:27)
[2019-02-04] MEDS ORDERED: NS 0.9% 1000 ML** 1,000 ML IV SCH ×2 (10:28→10:45)
--- NOTE | 2019-02-04 10:34 | PN ---
Progress Note - Progress Note Date of Service: 02/04/19 SOAP: Subjective: []Still nausea, no better. Soar throat. Weak and feels poorly. Dilaudid is helping for pain but makes nausea worse. Feels like has bile coming up. Hydromorphone HCl (Dilaudid Inj1s*) 0.5 mg IV SLOW PU Q2H PRN PRN Reason: PAIN - MODERATE Last Admin: 02/04/19 05:38 Dose: 0.5 mg Sodium Chloride (Ns 0.9% 1000 Ml) 1,000 mls @ 150 mls/hr IV PER RATE BRIAN Lorazepam (Ativan Inj*) 1 mg IV PUSH Q6H PRN PRN Reason: Nausea Last Admin: 02/04/19 05:37 Dose: 1 mg Metoclopramide HCl (Reglan Iv*) 10 mg IV Q8H PRN PRN Reason: NAUSEA/VOMITING Miscellaneous (Ativan Pyxis Gutierrez) 1 ea N/A .ATIVAN IV GUTIERREZ PRN PRN Reason: PYXIS GUTIERREZ Nystatin (Nystatin Suspension*) 500,000 units PO QID BRIAN Last Admin: 02/03/19 20:07 Dose: 500,000 units Scopolamine (Transderm-Scop 1.5 Mg Patch*) 1 patch TRANSDERM Q72H [facility] Last Admin: 02/03/19 10:07 Dose: 1 patch Objective: [] Vital Signs Temp Pulse Resp BP Pulse Ox 98.5 F 70 14 112/68 100 02/04/19 07:15 02/04/19 07:15 02/04/19 07:15 02/04/19 07:15 02/04/19 07:15 HEENT: Dry and XRT changes, no thrush, not much congestion. CTA RRR S1D2 +BS NT ND PEG intact, Ext w/o c/c/e Neuro AAOx3 Assessment: []Refectory nausea at completion of XRT and after HD Cis Cy #3. Plan: []1. Continue Hydration and replete K and Mg today 2. Nausea: - Add Reglan 10 mg IV TID - Scopolamine patch - Hold Reglan, Ativan 1 mg IV prn q8 nausea - No evidence of obstruction. 3. Hold PEG today, will try and re-start tomorrow if better. 4. Discharge home when feeling better 5. PT/OT tomorrow.
[2019-02-04] MEDS ORDERED: Magnesium Sulf 4 GM/100 ML IV* 4,000 MG/100 ML BAG IVPB ONE (10:37)
[2019-02-04] MEDS ORDERED: Metoclopramide IV* 5 MG/ML 2 ML VIAL IV SCH (11:00)
[2019-02-04] MEDS: NS 0.9% w/ 40 Meq KCL 1000 ML* 1,000 ML IV SCH ×2 (11:30→19:23)
[2019-02-04] MEDS: Nystatin SUSPENSION* 100000 UNITS/ML 5 ML UDC PO SCH ×4 (12:49→19:23)
[2019-02-04] MEDS: Metoclopramide IV* 5 MG/ML 2 ML VIAL IV SCH ×2 (14:00→22:31)
[2019-02-05] MEDS: LORazepam INJ* 2 MG/ML 1 ML VIAL IV PUSH PRN (03:40)
[2019-02-05] MEDS: NS 0.9% w/ 40 Meq KCL 1000 ML* 1,000 ML IV SCH ×3 (03:40→21:11)
[2019-02-05] MEDS: HYDROmorphone INJ1* 1 MG/ML SYRINGE IV SLOW PU PRN ×5 (06:13→17:28)
[2019-02-05] MEDS: Metoclopramide IV* 5 MG/ML 2 ML VIAL IV SCH ×3 (06:13→21:57)
[2019-02-05 06:57] LABS: ABS Lymphocytes 0.1 10^3/ul (1.0-4.8); ABS Monocytes 0.4 10^3/ul (0-0.8); ABS Neutrophils 2.9 10^3/ul (1.5-7.7); Eosinophil % 0.1 %; Hematocrit 22 % (35-47); Lymphocyte % 2.9 %; Mean Corpuscular HGB Conc 37 g/dL (31-36); Mean Corpuscular Hemoglobin 35 pg (27-31); Mean Corpuscular Volume 95 fL (80-97); Mean Platelet Volume 6.8 fL (7.4-10.4); Nucleated Red Blood Cells % 0.1; Platelet Count 169 10^3/uL (150-450); Red Blood Count 2.28 10^6 /uL (3.70-4.87); Red Cell Distribution Width 15 % (10-15); White Blood Count 3.4 10^3/uL (3.5-10.8)
[2019-02-05 07:19] LABS: Albumin/Globulin Ratio 1.3 (1-3); BUN/Creatinine Ratio 26.4 (8-20); Calcium 7.8 mg/dL (8.6-10.3); EGFR African American 140.5 (>60); EGFR Non-African American 116.1 (>60); Globulin 2.3 g/dL (2-4); Magnesium 1.4 mg/dL (1.9-2.7); Potassium 3.6 mmol/L (3.5-5.0); Total Bilirubin 0.5 mg/dL (0.2-1.0); Total Protein 5.3 g/dL (6.4-8.9)
[2019-02-05] MEDS ORDERED: Magnesium Sulfate 2 GM IV* 2 GM/50 ML BAG IVPB ONE (08:42)
[2019-02-05] MEDS ORDERED: Ondansetron INJ* 2 MG/ML VIAL IV PRN (08:48)
--- NOTE | 2019-02-05 09:16 | PN ---
Subjective Date of Service: 02/05/19 Interval History: Still some emesis and nausea but feels she will tolerate TF today. Some throat pain, patient thinks she is getting something for this but I think she is thinkg of the PRN IV metoclopramide. No bowel c/o. Objective Active Medications: Hydromorphone HCl (Dilaudid Inj1s*) 0.5 mg IV SLOW PU Q2H PRN PRN Reason: PAIN - MODERATE Last Admin: 02/05/19 06:13 Dose: 0.5 mg Potassium Chloride/Sodium Chloride (Ns 0.9% W/ 40 Meq Kcl 1000 Ml*) 1,000 mls @ 150 mls/hr IV PER RATE [facility] Last Admin: 02/05/19 03:40 Dose: 150 mls/hr Magnesium Sulfate (Magnesium Sulfate 2 Gm Iv*) 2 gm in 50 mls @ 50 mls/hr IVPB ONCE ONE Stop: 02/05/19 09:41 Lorazepam (Ativan Inj*) 1 mg IV PUSH Q6H PRN PRN Reason: Nausea Last Admin: 02/05/19 03:40 Dose: 1 mg Metoclopramide HCl (Reglan Iv*) 10 mg IV 0600,1400,2200 [facility] Last Admin: 02/05/19 06:13 Dose: 10 mg Miscellaneous (Ativan Pyxis Gutierrez) 1 ea N/A .ATIVAN IV GUTIERREZ PRN PRN Reason: PYXIS GUTIERREZ Nystatin (Nystatin Suspension*) 500,000 units PO QID [facility] Last Admin: 02/04/19 19:23 Dose: 500,000 units Ondansetron HCl (Zofran Inj*) 4 mg IV Q4H PRN PRN Reason: NAUSEA Scopolamine (Transderm-Scop 1.5 Mg Patch*) 1 patch TRANSDERM Q72H [facility] Last Admin: 02/03/19 10:07 Dose: 1 patch Vital Signs - 8 hr 02/05/19 02/05/19 02/05/19 03:34 03:40 05:29 Temperature 98.7 F Pulse Rate 89 Respiratory 17 18 16 Rate Blood Pressure 145/70 (mmHg) O2 Sat by Pulse 96 Oximetry 02/05/19 02/05/19 02/05/19 06:13 07:15 07:20 Temperature 97.5 F Pulse Rate 62 Respiratory 18 18 16 Rate Blood Pressure 116/64 (mmHg) O2 Sat by Pulse 99 Oximetry Oxygen Devices in Use Now: None Appearance: Alert, partly up in bed. In good spirits, looks comfortable. Eyes: No Scleral Icterus Respiratory: Symmetrical Chest Expansion and Respiratory Effort, Clear to Auscultation, Clear to Percussion Cardiovascular: NL Sounds; No Murmurs; No JVD, RRR, No Edema, - Extremities: No Edema, No Clubbing, Cyanosis, - Skin: No Rash or Ulcers, No Nodules or Sclerosis, - Neurological: Alert and Oriented x 3, NL Sensation Result Diagrams: 02/05/19 06:50 02/05/19 06:50 Additional Lab and Data: Lab Results 02/02/19 02/02/19 Range/Units 22:24 22:24 WBC 2.6 L (3.5-10.8) 10^3/uL RBC 2.52 L (3.70-4.87) 10^6 /uL Hgb 8.7 L (12.0-16.0) g/dL Hct 24 L (35-47) % MCV 95 (80-97) fL MCH 35 H (27-31) pg MCHC 36 (31-36) g/dL RDW 15 (10-15) % Plt Count 218 (150-450) 10^3/uL MPV 7.2 L (7.4-10.4) fL Neut % (Auto) 81.4 % Lymph % (Auto) 3.6 % [place] % (Auto) 14.9 % Eos % (Auto) 0.1 % Baso % (Auto) 0.0 % Absolute Neuts (auto) 2.1 (1.5-7.7) 10^3/ul Absolute Lymphs (auto) 0.1 L (1.0-4.8) 10^3/ul Absolute Monos (auto) 0.4 (0-0.8) 10^3/ul Absolute Eos (auto) 0.0 (0-0.6) 10^3/ul Absolute Basos (auto) 0.0 (0-0.2) 10^3/ul Absolute Nucleated RBC 0.0 10^3/ul Nucleated RBC % 0.0 Sodium 132 L (135-145) mmol/L Potassium 3.2 L (3.5-5.0) mmol/L Chloride 91 L (101-111) mmol/L Carbon Dioxide 34 H (22-32) mmol/L Anion Gap 7 (2-11) mmol/L BUN 26 H (6-24) mg/dL Creatinine 0.74 (0.51-0.95) mg/dL Est GFR ( Amer) 95.6 (>60) Est GFR (Non-Af Amer) 79.0 (>60) BUN/Creatinine Ratio 35.1 H (8-20) Glucose 111 H (70-100) mg/dL Calcium 8.6 (8.6-10.3) mg/dL Magnesium 1.1 L (1.9-2.7) mg/dL Total Bilirubin 0.80 (0.2-1.0) mg/dL AST 22 (13-39) U/L ALT 21 (7-52) U/L Alkaline Phosphatase 54 (34-104) U/L C-Reactive Protein 3.01 (<8.01) mg/L Total Protein 6.1 L (6.4-8.9) g/dL Albumin 3.5 (3.2-5.2) g/dL Globulin 2.6 (2-4) g/dL Albumin/Globulin Ratio 1.3 (1-3) Lipase < 10 L (11.0-82.0) U/L Assess/Plan/Problems-Billing Assessment: - Patient Problems (1) Hypopharyngeal cancer Current Visit: Yes Status: Acute Code(s): C13.9 - MALIGNANT NEOPLASM OF HYPOPHARYNX, UNSPECIFIED SNOMED Code(s): 758137600 Comment: Completed 3 cycles chemo so far. Chemo-related N&V. PRN IV metoclopramide, ondansetron. Start TF 02/05, reduce IV rate.
[2019-02-05] MEDS: Nystatin SUSPENSION* 100000 UNITS/ML 5 ML UDC PO SCH ×5 (09:37→22:08)
[2019-02-05] MEDS: HYDROmorphone INJ1* 1 MG/ML SYRINGE IV PRN (21:03)
[2019-02-06] MEDS: HYDROmorphone INJ1* 1 MG/ML SYRINGE IV PRN ×4 (01:23→09:55)
[2019-02-06] MEDS: Metoclopramide IV* 5 MG/ML 2 ML VIAL IV SCH (05:45)
[2019-02-06] MEDS: NS 0.9% w/ 40 Meq KCL 1000 ML* 1,000 ML IV SCH ×2 (07:27→17:38)
--- NOTE | 2019-02-06 09:46 | PN ---
Progress Note - Progress Note Date of Service: 02/06/19 SOAP: Subjective: []Better. Tolerated PEG feeds. Still nausea but mostly with cough. Pain is 8/10 and needs IV pain medication still. No fevers. Cannot swallow pills but is swallowing water. Hydromorphone HCl (Dilaudid Inj1s*) 1 mg IV Q2H PRN PRN Reason: MODERATE PAIN Last Admin: 02/06/19 07:32 Dose: 1 mg Potassium Chloride/Sodium Chloride (Ns 0.9% W/ 40 Meq Kcl 1000 Ml*) 1,000 mls @ 100 mls/hr IV PER RATE [facility] Last Admin: 02/06/19 07:27 Dose: 100 mls/hr Lorazepam (Ativan Inj*) 1 mg IV PUSH Q6H PRN PRN Reason: Nausea Last Admin: 02/05/19 03:40 Dose: 1 mg Metoclopramide HCl (Reglan Iv*) 10 mg IV 0600,1400,2200 [facility] Last Admin: 02/06/19 05:45 Dose: 10 mg Miscellaneous (Ativan Pyxis Gutierrez) 1 ea N/A .ATIVAN IV GUTIERREZ PRN PRN Reason: PYXIS GUTIERREZ Nystatin (Nystatin Suspension*) 500,000 units PO QID [facility] Last Admin: 02/05/19 22:08 Dose: Not Given Ondansetron HCl (Zofran Inj*) 4 mg IV Q4H PRN PRN Reason: NAUSEA Scopolamine (Transderm-Scop 1.5 Mg Patch*) 1 patch TRANSDERM Q72H [facility] Last Admin: 02/03/19 10:07 Dose: 1 patch Objective: [] Vital Signs Temp Pulse Resp BP Pulse Ox 98.6 F 75 16 118/67 98 02/06/19 07:15 02/06/19 07:15 02/06/19 07:32 02/06/19 07:15 02/06/19 07:15 HEENT: Dry and XRT changes, no thrush, not much congestion. CTA RRR S1D2 +BS NT ND PEG intact, Ext w/o c/c/e Neuro AAOx3 Assessment: []Refectory nausea at completion of XRT and after HD Cis Cy #3. She is improving , does not want to be discharged b/c of pain and nausea. Will transition medication today to PET tube, if stable d/c tomorrow. Plan: []1. Continue Hydration and replete K and Mg today 2. Nausea improving. - Reglan per PEG prn - Continue Scopolamine patch - d/c Ativan - No evidence of obstruction. 3. Continue PEG feeds 4. Discharge tomorrow if doing well.
[2019-02-06] MEDS ORDERED: Magnesium Sulf 4 GM/100 ML IV* 4,000 MG/100 ML BAG IVPB ONE (09:47)
[2019-02-06] MEDS: Nystatin SUSPENSION* 100000 UNITS/ML 5 ML UDC PO SCH ×3 (09:54→16:28)
[2019-02-06] MEDS: Scopolamine 1.5 mg* PATCH TRANSDERM SCH (09:54)
[2019-02-06] MEDS: fentaNYL PATCH 12 MCG/HR TRANSDERM SCH (10:59)
[2019-02-06] MEDS: Metoclopramide LIQ* 10 MG/10 ML ORAL.SOLN PEG TUBE PRN ×3 (10:59→22:20)
[2019-02-06] MEDS: oxyCODONE ORAL.SOLN* 5 MG/5 ML UDC PRN ×3 (11:52→22:16)
[2019-02-06] MEDS: fentaNYL Patch Check Q Shift 1 NOTE FOLLOW UP SCH (19:34)
[2019-02-07] MEDS: HYDROmorphone INJ1* 1 MG/ML SYRINGE IV PRN ×6 (01:37→19:55)
[2019-02-07] MEDS: Nystatin SUSPENSION* 100000 UNITS/ML 5 ML UDC PO SCH ×6 (03:07→21:03)
[2019-02-07] MEDS: NS 0.9% w/ 40 Meq KCL 1000 ML* 1,000 ML IV SCH ×3 (03:53→15:27)
[2019-02-07 06:11] LABS: ABS Lymphocytes 0.1 10^3/ul (1.0-4.8); ABS Monocytes 0.4 10^3/ul (0-0.8); ABS Neutrophils 2.4 10^3/ul (1.5-7.7); Eosinophil % 0.2 %; Hematocrit 21 % (35-47); Hemoglobin 7.8 g/dL (12.0-16.0); Lymphocyte % 3.9 %; Mean Corpuscular HGB Conc 37 g/dL (31-36); Mean Corpuscular Hemoglobin 35 pg (27-31); Mean Corpuscular Volume 94 fL (80-97); Mean Platelet Volume 7.4 fL (7.4-10.4); Platelet Count 154 10^3/uL (150-450); Red Blood Count 2.23 10^6 /uL (3.70-4.87); Red Cell Distribution Width 16 % (10-15); White Blood Count 2.9 10^3/uL (3.5-10.8)
[2019-02-07 06:22] LABS: Calcium 7.9 mg/dL (8.6-10.3); Magnesium 1.3 mg/dL (1.9-2.7); Potassium 3.6 mmol/L (3.5-5.0); Total Bilirubin 0.6 mg/dL (0.2-1.0)
[2019-02-07 06:28] LABS: Albumin/Globulin Ratio 1.4 (1-3); EGFR African American 150.3 (>60); EGFR Non-African American 124.2 (>60); Globulin 2.2 g/dL (2-4); Total Protein 5.2 g/dL (6.4-8.9)
[2019-02-07] MEDS: fentaNYL PATCH 12 MCG/HR TRANSDERM SCH (08:06)
[2019-02-07] MEDS: fentaNYL Patch Check Q Shift 1 NOTE FOLLOW UP SCH ×2 (08:18→18:55)
[2019-02-07] MEDS ORDERED: Morphine ORAL CONCENTRATE* 5 MG/0.25 ML ORAL.SYRIN SL PRN (10:13)
--- NOTE | 2019-02-07 10:39 | PN ---
Progress Note - Progress Note Date of Service: 02/07/19 SOAP: Subjective: [She still feels awful today. Nausea is better, but has required IV narcotics for pain control. She is struggling with thick secretions. She received 1 can of tube feedings yesterday and reports that she tolerated that well.] Objective: [ Vital Signs: Temp Pulse Resp BP Pulse Ox 98.4 F 73 18 127/69 97 02/07/19 07:39 02/07/19 07:39 02/07/19 08:06 02/07/19 07:39 02/07/19 07:39 Fentanyl (Duragesic Patch 25 Mcg/Hr*) 25 mcg TRANSDERM Q72H [facility] Hydromorphone HCl (Dilaudid Inj1s*) 1 mg IV Q3H PRN PRN Reason: PAIN - SEVERE Last Admin: 02/07/19 08:05 Dose: 1 mg Potassium Chloride/Sodium Chloride (Ns 0.9% W/ 40 Meq Kcl 1000 Ml*) 1,000 mls @ 50 mls/hr IV PER RATE [facility] Metoclopramide HCl (Reglan Liq*) 10 mg PEG TUBE Q6H PRN PRN Reason: NAUSEA Last Admin: 02/06/19 22:20 Dose: 10 mg Morphine Sulfate (Morphine Oral Concentrate*) 10 mg SL Q2H PRN PRN Reason: PAIN - MODERATE Nystatin (Nystatin Suspension*) 500,000 units PO QID [facility] Last Admin: 02/07/19 08:34 Dose: Not Given Oxycodone HCl (Oxycodone Oral.Soln*) 5 mg .SEE ORDER Q6H PRN PRN Reason: PAIN - SEVERE Last Admin: 02/06/19 22:16 Dose: 5 mg Pharmacy Profile Note (Fentanyl Patch Check Q Shift) 1 note FOLLOW UP 0700, 1900 [facility] Last Admin: 02/07/19 08:18 Dose: Not Given Scopolamine (Transderm-Scop 1.5 Mg Patch*) 1 patch TRANSDERM Q72H [facility] Last Admin: 02/06/19 09:54 Dose: 1 patch Laboratory Results - last 24 hr 02/07/19 02/07/19 05:28 05:28 WBC 2.9 L RBC 2.23 L Hgb 7.8 L Hct 21 L MCV 94 MCH 35 H MCHC 37 H RDW 16 H Plt Count 154 MPV 7.4 Neut % (Auto) 83.4 Lymph % (Auto) 3.9 [place] % (Auto) 12.4 Eos % (Auto) 0.2 Baso % (Auto) 0.1 Absolute Neuts (auto) 2.4 Absolute Lymphs (auto) 0.1 L Absolute Monos (auto) 0.4 Absolute Eos (auto) 0.0 Absolute Basos (auto) 0.0 Absolute Nucleated RBC 0.0 Nucleated RBC % 0.0 Sodium 130 L Potassium 3.6 Chloride 94 L Carbon Dioxide 28 Anion Gap 8 BUN 7 Creatinine 0.50 L Est GFR ( Amer) 150.3 Est GFR (Non-Af Amer) 124.2 BUN/Creatinine Ratio 14.0 Glucose 94 Calcium 7.9 L Magnesium 1.3 L Total Bilirubin 0.60 AST 16 ALT 14 Alkaline Phosphatase 42 Total Protein 5.2 L Albumin 3.0 L Globulin 2.2 Albumin/Globulin Ratio 1.4 Exam: Gen: chronically ill appearing, but in NAD HEENT: thick secretions, and mild mucositis of the posterior pharynx Neck: moderate L sided neck RT related dermatitis CV: RRR, no m/r/g Resp: coarse rhonchi Abd: PEG in place, active BS and nonTTP Ext: no edema] Assessment: [This is a 63 yo female with head/neck CA who just completed concurrent cisplatin/XRT therapy and admitted for intractable nausea and pain. Nausea is now better controlled, but pain remains poorly controlled. She reported increased nausea with prior use of hydrocodone via PEG tube.] Plan: [1. Intractable pain - increase fentanyl patch to 25mcg - start morphine concentrate SL - use IV dilaudid as needed to control more severe pain 2. Nausea - cont scopolamine patch 3. Mucositis - baking soda/salt water rinses 4. Head/neck CA - completed planned concurrent therapy Dispo: cont to titrate pain medications and increase intake via PEG tube with hopeful dc home tomorrow]
[2019-02-07] MEDS: fentaNYL PATCH 25 MCG/HR TRANSDERM SCH (11:31)
[2019-02-08] MEDS: HYDROmorphone INJ1* 1 MG/ML SYRINGE IV PRN ×4 (03:17→22:29)
[2019-02-08 06:16] LABS: ABS Lymphocytes 0.1 10^3/ul (1.0-4.8); ABS Monocytes 0.4 10^3/ul (0-0.8); ABS Neutrophils 1.8 10^3/ul (1.5-7.7); Eosinophil % 0.3 %; Hematocrit 23 % (35-47); Hemoglobin 8.4 g/dL (12.0-16.0); Mean Corpuscular HGB Conc 36 g/dL (31-36); Mean Corpuscular Hemoglobin 35 pg (27-31); Mean Corpuscular Volume 95 fL (80-97); Mean Platelet Volume 7.5 fL (7.4-10.4); Nucleated Red Blood Cells % 0.1; Platelet Count 148 10^3/uL (150-450); Red Blood Count 2.43 10^6 /uL (3.70-4.87); Red Cell Distribution Width 16 % (10-15); White Blood Count 2.4 10^3/uL (3.5-10.8)
[2019-02-08 06:34] LABS: Albumin 3.4 g/dL (3.2-5.2); Albumin/Globulin Ratio 1.4 (1-3); Calcium 8.3 mg/dL (8.6-10.3); EGFR African American 150.3 (>60); EGFR Non-African American 124.2 (>60); Globulin 2.5 g/dL (2-4); Potassium 3.6 mmol/L (3.5-5.0); Total Bilirubin 0.6 mg/dL (0.2-1.0); Total Protein 5.9 g/dL (6.4-8.9)
[2019-02-08] MEDS: fentaNYL Patch Check Q Shift 1 NOTE FOLLOW UP SCH ×2 (07:31→18:45)
[2019-02-08] MEDS: Nystatin SUSPENSION* 100000 UNITS/ML 5 ML UDC PO SCH ×4 (09:39→20:00)
--- NOTE | 2019-02-08 10:15 | PN ---
Progress Note - Progress Note Date of Service: 02/08/19 SOAP: Subjective: [Feeling better, still struggling with pain, but tolerating pain medications well. Still received multiple doses of parenteral analgesics over the last 24h. ] Objective: [ Vital Signs: Temp Pulse Resp BP Pulse Ox 98.7 F 86 14 106/73 98 02/08/19 07:53 02/08/19 07:53 02/08/19 09:35 02/08/19 07:53 02/08/19 07:53 Fentanyl (Duragesic Patch 25 Mcg/Hr*) 25 mcg TRANSDERM Q72H [facility] Last Admin: 02/07/19 11:31 Dose: 25 mcg Hydromorphone HCl (Dilaudid Inj1s*) 1 mg IV Q3H PRN PRN Reason: PAIN - SEVERE Last Admin: 02/08/19 09:35 Dose: 1 mg Potassium Chloride/Sodium Chloride (Ns 0.9% W/ 40 Meq Kcl 1000 Ml*) 1,000 mls @ 50 mls/hr IV PER RATE [facility] Last Admin: 02/07/19 15:27 Dose: 50 mls/hr Metoclopramide HCl (Reglan Liq*) 10 mg PEG TUBE Q6H PRN PRN Reason: NAUSEA Last Admin: 02/06/19 22:20 Dose: 10 mg Morphine Sulfate (Morphine Oral Concentrate*) 20 mg SL Q2H PRN PRN Reason: PAIN - MODERATE Nystatin (Nystatin Suspension*) 500,000 units PO QID [facility] Last Admin: 02/08/19 09:39 Dose: Not Given Oxycodone HCl (Oxycodone Oral.Soln*) 5 mg .SEE ORDER Q6H PRN PRN Reason: PAIN - SEVERE Last Admin: 02/06/19 22:16 Dose: 5 mg Pharmacy Profile Note (Fentanyl Patch Check Q Shift) 1 note FOLLOW UP 0700, 1900 [facility] Last Admin: 02/08/19 07:31 Dose: 1 note Scopolamine (Transderm-Scop 1.5 Mg Patch*) 1 patch TRANSDERM Q72H [facility] Last Admin: 02/06/19 09:54 Dose: 1 patch Laboratory Results - last 24 hr 02/08/19 02/08/19 05:54 05:54 WBC 2.4 L RBC 2.43 L Hgb 8.4 L Hct 23 L MCV 95 MCH 35 H MCHC 36 RDW 16 H Plt Count 148 L MPV 7.5 Neut % (Auto) 76.7 Lymph % (Auto) 6.0 [place] % (Auto) 16.8 Eos % (Auto) 0.3 Baso % (Auto) 0.2 Absolute Neuts (auto) 1.8 Absolute Lymphs (auto) 0.1 L Absolute Monos (auto) 0.4 Absolute Eos (auto) 0.0 Absolute Basos (auto) 0.0 Absolute Nucleated RBC 0.0 Nucleated RBC % 0.1 Sodium 131 L Potassium 3.6 Chloride 94 L Carbon Dioxide 29 Anion Gap 8 BUN 11 Creatinine 0.50 L Est GFR ( Amer) 150.3 Est GFR (Non-Af Amer) 124.2 BUN/Creatinine Ratio 22.0 H Glucose 101 H Calcium 8.3 L Total Bilirubin 0.60 AST 17 ALT 15 Alkaline Phosphatase 44 Total Protein 5.9 L Albumin 3.4 Globulin 2.5 Albumin/Globulin Ratio 1.4 Exam: Gen: chronically ill appearing, but in NAD. Appears much brighter and converses easily HEENT: thick secretions, and mild mucositis of the posterior pharynx Neck: moderate L sided neck RT related dermatitis CV: RRR, no m/r/g Resp: coarse rhonchi Abd: PEG in place, active BS and nonTTP Ext: no edema] Assessment: [This is a 63 yo female with head/neck CA who just completed concurrent cisplatin/XRT therapy and admitted for intractable nausea and pain. Nausea is now better controlled, but pain remains poorly controlled. She reported increased nausea with prior use of hydrocodone via PEG tube.] Plan: [1. Intractable pain - increased fentanyl patch to 25mcg - increase morphine concentrate SL to 20 mg SL q2h prn - use IV dilaudid as needed to control more severe pain 2. Nausea - cont scopolamine patch 3. Mucositis - baking soda/salt water rinses 4. Head/neck CA - completed planned concurrent therapy Dispo: cont to titrate pain medications and increase intake via PEG tube with hopeful dc home tomorrow]
[2019-02-08] MEDS: Morphine ORAL CONCENTRATE* 5 MG/0.25 ML ORAL.SYRIN SL PRN ×3 (12:21→18:19)
[2019-02-08] MEDS: NS 0.9% w/ 40 Meq KCL 1000 ML* 1,000 ML IV SCH (18:22)
[2019-02-09] MEDS: oxyCODONE ORAL.SOLN* 5 MG/5 ML UDC PRN ×3 (03:20→18:47)
[2019-02-09] MEDS: Morphine ORAL CONCENTRATE* 5 MG/0.25 ML ORAL.SYRIN SL PRN ×4 (06:29→21:08)
[2019-02-09 06:51] LABS: ABS Lymphocytes 0.2 10^3/ul (1.0-4.8); ABS Monocytes 0.4 10^3/ul (0-0.8); ABS Neutrophils 1.7 10^3/ul (1.5-7.7); Eosinophil % 0.3 %; Hematocrit 20 % (35-47); Hemoglobin 7.3 g/dL (12.0-16.0); Lymphocyte % 7.2 %; Mean Corpuscular HGB Conc 37 g/dL (31-36); Mean Corpuscular Hemoglobin 35 pg (27-31); Mean Corpuscular Volume 95 fL (80-97); Mean Platelet Volume 7.4 fL (7.4-10.4); Platelet Count 107 10^3/uL (150-450); Red Blood Count 2.06 10^6 /uL (3.70-4.87); Red Cell Distribution Width 16 % (10-15); White Blood Count 2.3 10^3/uL (3.5-10.8)
[2019-02-09] MEDS: fentaNYL Patch Check Q Shift 1 NOTE FOLLOW UP SCH ×2 (06:53→18:56)
[2019-02-09 07:07] LABS: Albumin 3.1 g/dL (3.2-5.2); Albumin/Globulin Ratio 1.3 (1-3); BUN/Creatinine Ratio 26.5 (8-20); EGFR African American 153.8 (>60); EGFR Non-African American 127.1 (>60); Globulin 2.4 g/dL (2-4); Magnesium 1.1 mg/dL (1.9-2.7); Total Bilirubin 0.5 mg/dL (0.2-1.0); Total Protein 5.5 g/dL (6.4-8.9)
[2019-02-09] MEDS: Nystatin SUSPENSION* 100000 UNITS/ML 5 ML UDC PO SCH ×4 (08:08→21:16)
[2019-02-09] MEDS: Scopolamine 1.5 mg* PATCH TRANSDERM SCH (09:35)
[2019-02-09] MEDS ORDERED: Magnesium Sulf 4 GM/100 ML IV* 4,000 MG/100 ML BAG IVPB ONE (10:42)
--- NOTE | 2019-02-09 11:41 | DS ---
ADDENDUM TO CORRECT DATE OF DISCHARGE ONLY DATE OF ADMISSION: 02/03/2019. DATE OF DISCHARGE: 02/09/2019. DATE OF DISCHARGE: 02/10/19 ADDENDUM - DATE OF DISCHARGE: The patient was finally discharged on 02/10/19. The patient felt that she needed an additional overnight for supportive care. No changes to discharge medications or followup plan. PRIMARY CARE PHYSICIAN: Not listed. PRIMARY ONCOLOGIST AND ATTENDING PHYSICIAN: Dr. Serge Jaffe * (dictated by PAWAN Steiner). PRIMARY DISCHARGE DIAGNOSES: 1. Intractable nausea, vomiting and pain secondary to concurrent chemotherapy and radiation for head/neck cancer. 2. Head/neck cancer - the patient has completed planned therapy and anticipate further symptomatic improvement over the coming weeks. 3. Severe dysphagia, PEG tube dependent secondary to recent therapy as described above. DISCHARGE MEDICATIONS: 1. Fentanyl patch 50 mcg transdermal changed to every 72 hours. 2. Oxycodone 5 mg/5 ml via PEG tube q.6 hours prn pain. HOSPITAL IMAGING: None. HOSPITAL COURSE: This is a 63-year-old female with head and neck cancer who completed her third cycle of Cisplatin with concurrent radiation on January 30. The patient had been doing very well with symptom management until her third cycle of Cisplatin at which point she developed severe nausea and vomiting and significant throat pain at the site of radiation. The patient was unable to tolerate her tube feedings due to severe nausea and vomiting and was subsequently admitted for symptom management. The patient required multiple doses of IV analgesics to control her pain and IV fluids and antiemetics. Initial lab showed hypokalemia and severe hypomagnesemia with a magnesium level of 1.1. The patient received appropriate electrolyte repletion and his nausea eventually improved. The patient was started on a Fentanyl patch and initially given Morphine Sulfate liquid orally and eventually transitioned to Oxycodone liquid via PEG tube as her nausea improved as she felt this was more effective for pain control. She was able to tolerate up to four cans of tube feedings per day without nausea or vomiting at the time of discharge and felt that her pain was reasonable well-controlled with the regimen as described above. The patient continued to produce thick secretions with frequent coughing and occasional gagging which is to be expected at this phase of treatment. The patient was also counseled that her chemotherapy and radiation-related side effects will unfortunately continue at the current level of severity for two weeks following completion of radiation, at which point with expect things to slowly improve. She will continue to be supported with parental fluids as an outpatient through the chemotherapy infusion suite as necessary over the next several weeks. DISPOSITION AND FOLLOW-UP PLAN: The patient is being discharged to home in stable condition. She will continue with PEG tube feedings with a goal of five cans a day. She will start to work with Speech Therapy as an outpatient next week to improve dysphagia and get her back to resuming oral nutrition. Plan hydration visits in the Oncology Clinic tomorrow morning. Prior to discharge, she is receiving one unit of packed red blood cells for hemoglobin of 7.3 and an additional 4 grams of magnesium. PAWAN STEINER [id number]/[facility] #: [id number]/[facility] #: [id number] BERNARDO
[2019-02-09] MEDS: NS 0.9% w/ 40 Meq KCL 1000 ML* 1,000 ML IV SCH (18:49)
[2019-02-10] MEDS: oxyCODONE ORAL.SOLN* 5 MG/5 ML UDC PRN ×3 (00:09→12:12)
[2019-02-10] MEDS: Morphine ORAL CONCENTRATE* 5 MG/0.25 ML ORAL.SYRIN SL PRN ×4 (02:45→14:55)
[2019-02-10] MEDS: fentaNYL Patch Check Q Shift 1 NOTE FOLLOW UP SCH (07:01)
[2019-02-10 07:50] VITALS: BP 123/69
[2019-02-10] MEDS: fentaNYL PATCH 25 MCG/HR TRANSDERM SCH (09:35)
[2019-02-10] MEDS: Nystatin SUSPENSION* 100000 UNITS/ML 5 ML UDC PO SCH ×3 (09:38→15:00)
[2019-02-10] MEDS ORDERED: Magnesium Sulf 4 GM/100 ML IV* 4,000 MG/100 ML BAG IVPB ONE (10:35)
[2019-02-10] MEDS ORDERED: fentaNYL PATCH 50 MCG/HR TRANSDERM SCH (15:30)
--- NOTE | 2019-02-11 19:13 | DS ---
CC: Dr. Jaffe DISCHARGE SUMMARY: DATE OF ADMISSION: DATE OF DISCHARGE: 02/10/19 ADDENDUM: The patient was finally discharged on 02/10/19. The patient felt that she needed an additional overnight for supportive care. No changes to discharge medications or followup plan. PAWAN STEINER [id number]/[facility] #: [id number] BERNARDO
== END 2019-02-10 18:15 | disposition home or self-care (01) | DRG 249 ==
LOC: ED 20:13 → MED 02-03 02:21 → OBSVTOIN 02-03 14:00
PROVIDERS: ADMIT Internal Medicine; ATTEND Internal Medicine Hematology & Oncology
PROC: DWY17ZZ Contact Radiation of Head and Neck (ICD-10-PCS; principal; 2019-02-09)
PROC: 30233N1 Transfusion of Nonautologous Red Blood Cells into Peripheral Vein, Percutaneous Approach (ICD-10-PCS; 2019-02-09)
DX: R11.2 Nausea with vomiting, unspecified (principal); D61.810 Antineoplastic chemotherapy induced pancytopenia; C13.9 Malignant neoplasm of hypopharynx, unspecified; R13.14 Dysphagia, pharyngoesophageal phase; T45.1X5A Adverse effect of antineoplastic and immunosuppressive drugs, initial encounter; K12.30 Oral mucositis (ulcerative), unspecified; G89.3 Neoplasm related pain (acute) (chronic); T66.XXXA Radiation sickness, unspecified, initial encounter; E87.6 Hypokalemia; E83.42 Hypomagnesemia; Z93.1 Gastrostomy status; Z92.21 Personal history of antineoplastic chemotherapy; Z92.3 Personal history of irradiation; Z87.891 Personal history of nicotine dependence; Y92.9 Unspecified place or not applicable
CPT/HCPCS: 36415; 77386; 77412; 80048; 80053; 81003; 83690; 83735; 85025; 86140; 86850; 86900; 86901; 86922; 96361; 96365; 96375; 99232; 99239; 99283; A9270-GY; G0378; J1100; J1170; J2060; J2405; J2469; J2765; J3475; J3480; P9040

== ENCOUNTER 2022-02-04 15:24 | Inpatient (IN) ==
[2022-02-04] MEDS ORDERED: Magnesium Sulfate 2 gm BAG 2 GM/50 ML BAG IVPB ONE (15:40)
[2022-02-04] MEDS ORDERED: Lactated Ringers 1000 ml BAG 1,000 ML IV ONE (15:40)
[2022-02-04 15:44] LABS: ABS Lymphocytes 0.5 10^3/ul (1.0-4.8); ABS Monocytes 0.7 10^3/ul (0-0.8); Eosinophil % 0.2 %; Hematocrit 33 % (35-47); Hemoglobin 11.1 g/dL (12.0-16.0); Lymphocyte % 6.1 %; Mean Corpuscular HGB Conc 33 g/dL (31-36); Mean Corpuscular Hemoglobin 29 pg (27-31); Mean Corpuscular Volume 88 fL (80-97); Mean Platelet Volume 6.5 fL (7.4-10.4); Platelet Count 494 10^3/uL (150-450); Red Blood Count 3.77 10^6 /uL (3.70-4.87); Red Cell Distribution Width 14 % (10-15); White Blood Count 8.3 10^3/uL (3.5-10.8)
[2022-02-04 17:06] LABS: INR 1.4 (0.89-1.11)
[2022-02-04] MEDS ORDERED: dilTIAZem 30 MG TAB PO ONE (17:11)
[2022-02-04 17:21] LABS: Albumin 3.3 g/dL (3.2-5.2); Albumin/Globulin Ratio 0.9 (1-3); Calcium 9.3 mg/dL (8.6-10.3); Globulin 3.6 g/dL (2-4); Total Bilirubin 0.5 mg/dL (0.2-1.0); Total Protein 6.9 g/dL (6.4-8.9); eGFR CKD-EPI 101.8 (>60)
[2022-02-04 17:23] LABS: High Sensitivity Troponin 1 Hr 18 pg/mL (<15)
[2022-02-04] MEDS ORDERED: Iohexol 350 (CONTRAST) 500 ML MDV IV ONE (18:43)
[2022-02-05] MEDS ORDERED: Enoxaparin 40 MG/0.4 ML SYR SUBCUT SCH
[2022-02-05] MEDS ORDERED: Enoxaparin 40 MG/0.4 ML SYR ONE (00:05)
[2022-02-05] MEDS: Magic MouthWash2-BEN/MAAL/LIDO/NYST 240 ML BTL (alt formulation) SWISH SPIT SCH ×5 (00:27→20:55)
[2022-02-05] MEDS: Enoxaparin 60 MG/0.6 ML SYR SUBCUT SCH ×3 (00:27→20:55)
[2022-02-05 00:40] LABS: HDL Cholesterol 38.5 mg/dL
[2022-02-05 00:55] LABS: TSH Ultra Thyroid Stim Horm 4.53 mcIU/mL (0.34-5.60)
[2022-02-05 07:29] LABS: ABS Lymphocytes 0.4 10^3/ul (1.0-4.8); ABS Monocytes 0.7 10^3/ul (0-0.8); ABS Neutrophils 5.5 10^3/ul (1.5-7.7); Eosinophil % 0.4 %; Hematocrit 30 % (35-47); Hemoglobin 10.1 g/dL (12.0-16.0); Lymphocyte % 5.5 %; Mean Corpuscular HGB Conc 34 g/dL (31-36); Mean Corpuscular Hemoglobin 29 pg (27-31); Mean Corpuscular Volume 88 fL (80-97); Mean Platelet Volume 6.5 fL (7.4-10.4); Platelet Count 386 10^3/uL (150-450); Red Blood Count 3.44 10^6 /uL (3.70-4.87); Red Cell Distribution Width 14 % (10-15); White Blood Count 6.7 10^3/uL (3.5-10.8)
[2022-02-05 08:01] LABS: Calcium 9.1 mg/dL (8.6-10.3); Potassium 4.1 mmol/L (3.5-5.0); eGFR CKD-EPI 102.2 (>60)
[2022-02-05] MEDS: Metoprolol Tartrate 5 mg VIAL 5 ml VIAL (1 mg/ml) IV SCH ×3 (08:40→17:25)
[2022-02-05] MEDS ORDERED: Lactated Ringers 500 ml BAG 500 ML IV SCH (10:00)
[2022-02-05] MEDS: Acetaminophen IV 1 GM/100ML 1,000 MG/100 ML BAG IV PRN ×2 (12:34→22:19)
[2022-02-05] MEDS ORDERED: Morphine 2 MG/ML SYRINGE IV ONE ×2 (12:55→22:47)
[2022-02-05] MEDS ORDERED: COVID VACC, BIVAL MODERNA 50 MCG/0.5 ML SYR IM ONE (16:00)
[2022-02-05] MEDS ORDERED: Influenza vaccine *QUAD* *2022-23* 0.5 ML SYRINGE IM ONE (16:00)
[2022-02-05] MEDS ORDERED: Pneumococcal Vac 23-Polyvalent IM ONE (16:00)
[2022-02-05] MEDS ORDERED: Dextrose 50% Syringe 50 ml 25 GM/50 ML SYRINGE IV PUSH PRN (16:33)
[2022-02-05] MEDS: D5LR 1000 ml BAG 1,000 ML IV SCH (17:22)
[2022-02-05 20:58] LABS: Body Fluid WBC 1675 /mcL
[2022-02-05 21:48] LABS: Body Fluid Appearance Clear; Body Fluid Color Yellow; Body Fluid Source Pleural Fluid
[2022-02-05 23:30] LABS: Body Fluid Mono 19 %; Body Fluid Total Cells Counted 200
[2022-02-06] MEDS: Metoprolol Tartrate 5 mg VIAL 5 ml VIAL (1 mg/ml) IV SCH ×3 (00:09→15:32)
[2022-02-06] MEDS: D5LR 1000 ml BAG 1,000 ML IV SCH ×2 (04:20→17:48)
[2022-02-06 06:40] LABS: ABS Lymphocytes 0.4 10^3/ul (1.0-4.8); ABS Monocytes 0.7 10^3/ul (0-0.8); ABS Neutrophils 7.5 10^3/ul (1.5-7.7); Eosinophil % 0.4 %; Hematocrit 30 % (35-47); Hemoglobin 10.1 g/dL (12.0-16.0); Lymphocyte % 4.8 %; Mean Corpuscular HGB Conc 33 g/dL (31-36); Mean Corpuscular Hemoglobin 29 pg (27-31); Mean Corpuscular Volume 88 fL (80-97); Mean Platelet Volume 6.7 fL (7.4-10.4); Platelet Count 398 10^3/uL (150-450); Red Blood Count 3.46 10^6 /uL (3.70-4.87); Red Cell Distribution Width 14 % (10-15); White Blood Count 8.7 10^3/uL (3.5-10.8)
[2022-02-06 07:00] LABS: Calcium 9.1 mg/dL (8.6-10.3); Magnesium 1.6 mg/dL (1.9-2.7); Phosphorus 3.5 mg/dL (2.5-5.0); Potassium 3.7 mmol/L (3.5-5.0); eGFR CKD-EPI 100.8 (>60)
[2022-02-06] MEDS ORDERED: Magnesium Sulfate IV 3 GM in NS 0.9% 100 ml BAG 100 ML IVPB ONE (08:00)
[2022-02-06] MEDS: Enoxaparin 60 MG/0.6 ML SYR SUBCUT SCH ×2 (08:19→20:45)
[2022-02-06] MEDS: Magic MouthWash2-BEN/MAAL/LIDO/NYST 240 ML BTL (alt formulation) SWISH SPIT SCH ×5 (08:36→21:05)
[2022-02-06] MEDS: KCL 20 MEQ/100 ML IVPREMIX 20 MEQ/100 ML BAG IV SCH ×2 (11:15→13:28)
[2022-02-06] MEDS: Lidocaine PATCH 5% PATCH TRANSDERM SCH (13:28)
[2022-02-06] MEDS ORDERED: fentaNYL 100 mcg/2 ml 50 MCG/ML VIAL ONE (16:23)
[2022-02-06] MEDS ORDERED: Midazolam 5 mg/5 ml VIAL 1 mg/ml 5 ml VIAL (5 mg) ONE (16:23)
[2022-02-07] MEDS: Metoprolol Tartrate 5 mg VIAL 5 ml VIAL (1 mg/ml) IV SCH ×3 (01:52→16:07)
[2022-02-07] MEDS: D5LR 1000 ml BAG 1,000 ML IV SCH ×2 (03:55→13:16)
[2022-02-07 07:03] LABS: ABS Lymphocytes 0.3 10^3/ul (1.0-4.8); ABS Monocytes 0.5 10^3/ul (0-0.8); ABS Neutrophils 5.5 10^3/ul (1.5-7.7); Eosinophil % 0.3 %; Hematocrit 30 % (35-47); Lymphocyte % 5.1 %; Mean Corpuscular HGB Conc 34 g/dL (31-36); Mean Corpuscular Hemoglobin 30 pg (27-31); Mean Corpuscular Volume 88 fL (80-97); Mean Platelet Volume 6.5 fL (7.4-10.4); Platelet Count 407 10^3/uL (150-450); Red Cell Distribution Width 15 % (10-15); White Blood Count 6.3 10^3/uL (3.5-10.8)
[2022-02-07 07:44] LABS: Magnesium 1.6 mg/dL (1.9-2.7); Phosphorus 2.5 mg/dL (2.5-5.0); Potassium 3.7 mmol/L (3.5-5.0); eGFR CKD-EPI 100.4 (>60)
[2022-02-07] MEDS: Enoxaparin 60 MG/0.6 ML SYR SUBCUT SCH ×2 (08:08→21:29)
[2022-02-07] MEDS: Lidocaine PATCH 5% PATCH TRANSDERM SCH (08:09)
[2022-02-07] MEDS: Magic MouthWash2-BEN/MAAL/LIDO/NYST 240 ML BTL (alt formulation) SWISH SPIT SCH ×4 (08:16→21:32)
[2022-02-07] MEDS: KCL 10 MEQ/50 ML IVPREMIX 10 MEQ/50 ML BAG IV SCH ×3 (09:33→11:41)
[2022-02-07] MEDS ORDERED: Morphine 2 MG/ML SYRINGE IV ONE (10:26)
[2022-02-07 11:57] LABS: Lactate Dehydrogenase, BF 285 U/L
[2022-02-07] MEDS: Acetaminophen IV 1 GM/100ML 1,000 MG/100 ML BAG IV PRN ×2 (13:14→23:45)
[2022-02-07 14:51] LABS: C Reactive Protein 114.01 mg/L (<8.01)
[2022-02-07] MEDS: Pantoprazole VIAL 40 MG VIAL IV SCH (17:04)
[2022-02-07 22:48] LABS: Fluid Type, Protein, Total PLEURAL FLUID; Total Protein, BF 4.2 g/dL
[2022-02-08] MEDS: Metoprolol Tartrate 5 mg VIAL 5 ml VIAL (1 mg/ml) IV SCH ×3 (00:30→15:47)
[2022-02-08] MEDS: D5LR 1000 ml BAG 1,000 ML IV SCH ×3 (00:33→20:37)
[2022-02-08 07:03] LABS: ABS Lymphocytes 0.4 10^3/ul (1.0-4.8); ABS Monocytes 0.4 10^3/ul (0-0.8); ABS Neutrophils 4.5 10^3/ul (1.5-7.7); Eosinophil % 0.8 %; Hematocrit 33 % (35-47); Hemoglobin 10.6 g/dL (12.0-16.0); Lymphocyte % 7.2 %; Mean Corpuscular HGB Conc 33 g/dL (31-36); Mean Corpuscular Hemoglobin 29 pg (27-31); Mean Corpuscular Volume 90 fL (80-97); Mean Platelet Volume 6.5 fL (7.4-10.4); Platelet Count 309 10^3/uL (150-450); Red Blood Count 3.62 10^6 /uL (3.70-4.87); Red Cell Distribution Width 15 % (10-15); White Blood Count 5.3 10^3/uL (3.5-10.8)
[2022-02-08 07:49] LABS: CO2 Carbon Dioxide 25 mmol/L (22-32); Calcium 9.1 mg/dL (8.6-10.3); Chloride 98 mmol/L (101-111); Sodium 134 mmol/L (135-145)
[2022-02-08 07:51] LABS: Anion Gap 11 mmol/L (2-11)
[2022-02-08 07:55] LABS: Blood Urea Nitrogen 10 mg/dL (6-24); Glucose 103 mg/dL (70-100); Total Iron Binding Capacity 176 mcg/dL (250-450); Transferrin 126 mg/dL (203-362)
[2022-02-08] MEDS: Pantoprazole VIAL 40 MG VIAL IV SCH (08:37)
[2022-02-08] MEDS: Lidocaine PATCH 5% PATCH TRANSDERM SCH (08:38)
[2022-02-08] MEDS: Enoxaparin 60 MG/0.6 ML SYR SUBCUT SCH (08:38)
[2022-02-08] MEDS: Magic MouthWash2-BEN/MAAL/LIDO/NYST 240 ML BTL (alt formulation) SWISH SPIT SCH ×4 (08:38→20:40)
[2022-02-08 09:07] LABS: Iron 24 ug/dL (50-212); Magnesium 1.4 mg/dL (1.9-2.7); Phosphorus 2.8 mg/dL (2.5-5.0); Potassium Redraw 3.9 mmol/L (3.5-5.0)
[2022-02-08 09:24] LABS: TSH Ultra Thyroid Stim Horm 3.11 mcIU/mL (0.34-5.60)
[2022-02-08 09:26] LABS: Free T4 1.07 ng/dL (0.61-1.12)
[2022-02-08 09:32] LABS: Ferritin 435.1 ng/mL (11-307)
[2022-02-08 09:36] LABS: Vitamin B12 > 1450 pg/mL (180-914)
[2022-02-08 11:21] LABS: Glucose, BF 109 mg/dL; Glucose, BF 110 mg/dL
[2022-02-08] MEDS ORDERED: KCL 10 MEQ/50 ML IVPREMIX 10 MEQ/50 ML BAG IV ONE (11:36)
[2022-02-08] MEDS ORDERED: Magnesium Sulf 4 GM/100 ML IV 4,000 MG/100 ML BAG IVPB ONE (11:36)
[2022-02-08] MEDS: Acetaminophen IV 1 GM/100ML 1,000 MG/100 ML BAG IV PRN ×2 (13:32→20:42)
[2022-02-09] MEDS: Metoprolol Tartrate 5 mg VIAL 5 ml VIAL (1 mg/ml) IV SCH ×3 (00:24→18:59)
[2022-02-09] MEDS: D5LR 1000 ml BAG 1,000 ML IV SCH ×2 (06:40→21:39)
[2022-02-09 07:02] LABS: Hematocrit 33 % (35-47); Hemoglobin 10.7 g/dL (12.0-16.0); Mean Corpuscular HGB Conc 32 g/dL (31-36); Mean Corpuscular Hemoglobin 29 pg (27-31); Mean Corpuscular Volume 89 fL (80-97); Mean Platelet Volume 6.8 fL (7.4-10.4); Platelet Count 398 10^3/uL (150-450); Red Blood Count 3.74 10^6 /uL (3.70-4.87); Red Cell Distribution Width 15 % (10-15); White Blood Count 7.5 10^3/uL (3.5-10.8)
[2022-02-09 07:12] LABS: Activated Partial Thrombo Time 29.9 seconds (26.0-38.0); INR 1.2 (0.89-1.11)
[2022-02-09 07:19] LABS: Calcium 9.2 mg/dL (8.6-10.3); Magnesium 1.7 mg/dL (1.9-2.7); Potassium 3.5 mmol/L (3.5-5.0); eGFR CKD-EPI 102.7 (>60)
[2022-02-09] MEDS ORDERED: Magnesium Sulfate 2 gm BAG 2 GM/50 ML BAG IVPB ONE (07:21)
[2022-02-09] MEDS: Lidocaine PATCH 5% PATCH TRANSDERM SCH (08:01)
[2022-02-09] MEDS: Magic MouthWash2-BEN/MAAL/LIDO/NYST 240 ML BTL (alt formulation) SWISH SPIT SCH ×4 (08:01→20:18)
[2022-02-09] MEDS: Pantoprazole VIAL 40 MG VIAL IV SCH (08:06)
[2022-02-09] MEDS: Acetaminophen IV 1 GM/100ML 1,000 MG/100 ML BAG IV PRN ×2 (10:02→19:19)
[2022-02-09] MEDS ORDERED: Methylene Blue 0.5 % 50 MG/10 ML AMP IV ONE (16:08)
[2022-02-09] MEDS ORDERED: Bupivacaine 0.25% EPI 200,000 30 ML SDV ONE (16:08)
[2022-02-09] MEDS ORDERED: Rocuronium 50 mg VIAL 10 mg/ml 5 ml VIAL (50 mg) ONE (16:11)
[2022-02-09] MEDS ORDERED: Propofol 10 MG/ML 20 ML BTL ONE (16:11)
[2022-02-09] MEDS ORDERED: Lidocaine 2% PF 5 ML VIAL ONE (16:11)
[2022-02-09] MEDS ORDERED: fentaNYL 100 mcg/2 ml 50 MCG/ML VIAL ONE (16:11)
[2022-02-09] MEDS ORDERED: ceFAZolin 2 GM in NS PREMIX 2 GM/100 ML BAG IVPB ONE (16:17)
[2022-02-09] MEDS ORDERED: Midazolam 2 mg/2 ml VIAL 1 mg/ml 2 ml VIAL (2 mg) ONE (16:17)
[2022-02-09] MEDS ORDERED: Metoprolol Tartrate 5 mg VIAL 5 ml VIAL (1 mg/ml) ONE (16:24)
[2022-02-09] MEDS ORDERED: Phenylephrine 40 mcg/mL 10mL (400mcg) SYRINGE ONE (16:50)
[2022-02-09] MEDS ORDERED: Lactated Ringers 1000 ml BAG 1,000 ML IV SCH (17:00)
[2022-02-09] MEDS ORDERED: Ondansetron 4 mg VIAL 2 MG/ML 2 ml VIAL ONE (17:17)
[2022-02-09] MEDS ORDERED: Dexamethasone IV 4 MG/ML VIAL 1 ml VIAL ONE (17:17)
[2022-02-09] MEDS ORDERED: fentaNYL 100 mcg/2 ml 50 MCG/ML VIAL IV PRN (17:24)
[2022-02-09] MEDS ORDERED: Naloxone 0.4 mg VIAL 0.4 mg/ml 1 ml VIAL IV PRN (17:24)
[2022-02-09] MEDS ORDERED: Ondansetron 4 mg VIAL 2 MG/ML 2 ml VIAL IV PRN (17:24)
[2022-02-09] MEDS ORDERED: oxyCODONE 5 mg/5 ml ORAL.SOLN UDC PO PRN (22:54)
[2022-02-09] MEDS ORDERED: Morphine 2 MG/ML SYRINGE IV ONE (23:56)
[2022-02-10] MEDS: Enoxaparin 60 MG/0.6 ML SYR SUBCUT SCH ×3 (00:49→22:15)
[2022-02-10] MEDS: Metoprolol Tartrate 5 mg VIAL 5 ml VIAL (1 mg/ml) IV SCH ×3 (00:50→16:55)
[2022-02-10] MEDS: Pantoprazole VIAL 40 MG VIAL IV SCH (09:18)
[2022-02-10] MEDS: Lidocaine PATCH 5% PATCH TRANSDERM SCH (09:19)
[2022-02-10] MEDS: D5LR 1000 ml BAG 1,000 ML IV SCH ×2 (09:28→22:15)
[2022-02-10] MEDS: Magic MouthWash2-BEN/MAAL/LIDO/NYST 240 ML BTL (alt formulation) SWISH SPIT SCH ×2 (09:29→12:39)
[2022-02-10] MEDS: Acetaminophen IV 1 GM/100ML 1,000 MG/100 ML BAG IV PRN (13:50)
[2022-02-10] MEDS: Morphine 2 MG/ML SYRINGE IV PRN (19:34)
[2022-02-11] MEDS: Acetaminophen IV 1 GM/100ML 1,000 MG/100 ML BAG IV PRN ×2 (01:07→14:11)
[2022-02-11] MEDS: Metoprolol Tartrate 5 mg VIAL 5 ml VIAL (1 mg/ml) IV SCH ×3 (01:07→15:52)
[2022-02-11 06:32] LABS: Calcium 9.4 mg/dL (8.6-10.3); Magnesium 1.7 mg/dL (1.9-2.7); Phosphorus 2.2 mg/dL (2.5-5.0); Potassium 3.6 mmol/L (3.5-5.0); eGFR CKD-EPI 99.1 (>60)
[2022-02-11] MEDS ORDERED: Magnesium Sulfate IV 3 GM in NS 0.9% 100 ml BAG 100 ML IVPB ONE (08:00)
[2022-02-11] MEDS ORDERED: Lorazepam PYXIS KEY PRN ×2 (08:47→10:51)
[2022-02-11] MEDS ORDERED: LORazepam 2 mg VIAL 1 ml IV PUSH ONE (08:47)
[2022-02-11] MEDS: Pantoprazole VIAL 40 MG VIAL IV SCH (09:36)
[2022-02-11] MEDS: D5LR 1000 ml BAG 1,000 ML IV SCH ×2 (09:47→20:19)
[2022-02-11] MEDS: Enoxaparin 60 MG/0.6 ML SYR SUBCUT SCH (09:47)
[2022-02-11] MEDS: Lidocaine PATCH 5% PATCH TRANSDERM SCH (10:07)
[2022-02-11] MEDS ORDERED: Senna TAB 8.6 mg TAB PO PRN (10:22)
[2022-02-11] MEDS ORDERED: Magnesium Hydroxide LIQ 30 ML UDC PO PRN (10:22)
[2022-02-11] MEDS ORDERED: Polyethylene Glycol 3350 17 GM PACKET PO PRN (10:22)
[2022-02-11] MEDS ORDERED: LORazepam 2 mg VIAL 1 ml IV PUSH PRN ×2 (10:51→11:03)
[2022-02-11] MEDS: KCL 20 MEQ/100 ML IVPREMIX 20 MEQ/100 ML BAG IV SCH ×2 (11:30→13:40)
[2022-02-11] MEDS ORDERED: Magnesium Sulfate 2 GM IV (Premix) IVPB ONE (12:00)
[2022-02-11] MEDS ORDERED: Docusate LIQ 100 MG/10 ML UDC PO SCH (13:00)
[2022-02-11] MEDS ORDERED: Magnesium Sulfate 1 GM IV 1 GM/100 ML BAG IV ONE (13:00)
[2022-02-11] MEDS ORDERED: NS 0.9% 1000 ml BAG 1,000 ML IV ONE (13:10)
[2022-02-11] MEDS ORDERED: Lactated Ringers 1000 ml BAG 1,000 ML IV ONE (14:35)
[2022-02-11 14:43] LABS: ABS Lymphocytes 0.4 10^3/ul (1.0-4.8); ABS Monocytes 0.5 10^3/ul (0-0.8); ABS Neutrophils 8.8 10^3/ul (1.5-7.7); Eosinophil % 0.3 %; Hematocrit 32 % (35-47); Hemoglobin 10.6 g/dL (12.0-16.0); Lymphocyte % 4.2 %; Mean Corpuscular HGB Conc 33 g/dL (31-36); Mean Corpuscular Hemoglobin 29 pg (27-31); Mean Corpuscular Volume 88 fL (80-97); Mean Platelet Volume 6.6 fL (7.4-10.4); Platelet Count 384 10^3/uL (150-450); Red Blood Count 3.62 10^6 /uL (3.70-4.87); Red Cell Distribution Width 15 % (10-15); White Blood Count 9.8 10^3/uL (3.5-10.8)
[2022-02-11] MEDS ORDERED: Vancomycin per Pharmacy 1 EA NOTE FOLLOW UP PRN (14:54)
[2022-02-11] MEDS ORDERED: Cefepime 1 GM in Dextrose 1 GM/50 ML BAG IV SCH (15:00)
[2022-02-11] MEDS ORDERED: Cefepime ADVAN 1 GM in NS 0.9% 50 ML 50 ML IVPB SCH (15:00)
[2022-02-11] MEDS ORDERED: Vancomycin 1,000 MG in NS 0.9% 250 ml 250 ML IVPB ONE (15:00)
[2022-02-11] MEDS ORDERED: Zosyn per Pharmacy NOTE FOLLOW UP SCH (15:00)
[2022-02-11] MEDS ORDERED: Piperacillin/Tazobac ADVAN 3.375 GM in NS 0.9% 100 ml BAG 100 ML IV ONE (15:00)
[2022-02-11] MEDS: Cefepime 1 GM in Dextrose 1 GM/50 ML BAG IV SCH (15:18)
[2022-02-11] MEDS ORDERED: Enoxaparin 60 MG/0.6 ML SYR SUBCUT SCH (18:00)
[2022-02-11 23:21] LABS: Urine Appearance Clear; Urine Bilirubin Negative (Negative); Urine Blood Negative (Negative); Urine Color Yellow; Urine Glucose Negative (Negative); Urine Ketones Negative (Negative); Urine Nitrite Negative (Negative); Urine Protein Negative (Negative); Urine Specific Gravity 1.019 (1.002-1.030); Urine Urobilinogen Negative (Negative)
[2022-02-12] MEDS: Metoprolol Tartrate 5 mg VIAL 5 ml VIAL (1 mg/ml) IV SCH ×4 (00:01→18:40)
[2022-02-12] MEDS: Enoxaparin 60 MG/0.6 ML SYR SUBCUT SCH ×2 (00:04→09:01)
[2022-02-12] MEDS ORDERED: Furosemide 20 mg/2 ml IV VIAL IV SLOW PU ONE (01:27)
[2022-02-12] MEDS: Cefepime 1 GM in Dextrose 1 GM/50 ML BAG IV SCH ×2 (04:51→15:44)
[2022-02-12 07:07] LABS: ABS Lymphocytes 0.5 10^3/ul (1.0-4.8); ABS Monocytes 0.6 10^3/ul (0-0.8); ABS Neutrophils 9.1 10^3/ul (1.5-7.7); Eosinophil % 0.1 %; Hematocrit 32 % (35-47); Hemoglobin 10.4 g/dL (12.0-16.0); Lymphocyte % 4.5 %; Mean Corpuscular HGB Conc 32 g/dL (31-36); Mean Corpuscular Hemoglobin 29 pg (27-31); Mean Corpuscular Volume 89 fL (80-97); Platelet Count 391 10^3/uL (150-450); Red Blood Count 3.63 10^6 /uL (3.70-4.87); Red Cell Distribution Width 15 % (10-15); White Blood Count 10.2 10^3/uL (3.5-10.8)
[2022-02-12 07:30] LABS: Albumin 2.5 g/dL (3.2-5.2); Albumin/Globulin Ratio 0.8 (1-3); Calcium 8.6 mg/dL (8.6-10.3); Globulin 3.1 g/dL (2-4); Magnesium 1.6 mg/dL (1.9-2.7); Phosphorus 1.8 mg/dL (2.5-5.0); Potassium 3.2 mmol/L (3.5-5.0); Total Bilirubin 0.5 mg/dL (0.2-1.0); Total Protein 5.6 g/dL (6.4-8.9); eGFR CKD-EPI 107.1 (>60)
[2022-02-12] MEDS ORDERED: Magnesium Sulfate IV 3 GM in NS 0.9% 100 ml BAG 100 ML IVPB ONE (07:31)
[2022-02-12] MEDS: Vancomycin 750 MG in NS 0.9% 250 ML IVPB SCH ×2 (07:48→20:01)
[2022-02-12] MEDS ORDERED: D5LR 1000 ml BAG 1,000 ML IV SCH ×3 (08:00→18:01)
[2022-02-12] MEDS: Lidocaine PATCH 5% PATCH TRANSDERM SCH (09:06)
[2022-02-12] MEDS: KCL 20 MEQ/100 ML IVPREMIX 20 MEQ/100 ML BAG IV SCH ×4 (10:19→22:28)
[2022-02-12] MEDS: Pantoprazole VIAL 40 MG VIAL IV SCH (10:28)
[2022-02-12] MEDS ORDERED: Potassium Chloride LIQUID 20 MEQ/15 ML LIQUID PO ONE (13:44)
[2022-02-12] MEDS ORDERED: Lidocaine 1% VIAL 10 MG/ML VIAL 30 ML INJ ONE (15:48)
[2022-02-12] MEDS ORDERED: Lorazepam PYXIS KEY PRN (16:41)
[2022-02-12] MEDS: Morphine 2 MG/ML SYRINGE IV PRN (16:56)
[2022-02-12] MEDS: LORazepam 2 mg VIAL 1 ml IV PUSH PRN (18:40)
[2022-02-12] MEDS ORDERED: CMCS: Oral Rinse (Biotene)(NF) 237 ML or 473 ML ORAL RINSE BTL MT SCH (19:00)
[2022-02-12 22:26] LABS: Body Fluid WBC 1208 /mcL
[2022-02-12 23:36] LABS: Body Fluid Appearance Cloudy; Body Fluid Color Yellow; Body Fluid Source Pleural Fluid
[2022-02-12 23:40] LABS: Body Fluid Mono 4 %; Body Fluid Total Cells Counted 200
[2022-02-13] MEDS: Metoprolol Tartrate 5 mg VIAL 5 ml VIAL (1 mg/ml) IV SCH ×3 (03:09→22:03)
[2022-02-13] MEDS: Cefepime 1 GM in Dextrose 1 GM/50 ML BAG IV SCH ×2 (03:14→17:00)
[2022-02-13] MEDS ORDERED: Vancomycin Trough Check NOTE FOLLOW UP ONE (05:30)
[2022-02-13 06:36] LABS: ABS Lymphocytes 0.4 10^3/ul (1.0-4.8); ABS Monocytes 0.5 10^3/ul (0-0.8); ABS Neutrophils 8.7 10^3/ul (1.5-7.7); Eosinophil % 0.1 %; Hematocrit 31 % (35-47); Lymphocyte % 4.5 %; Mean Corpuscular HGB Conc 33 g/dL (31-36); Mean Corpuscular Hemoglobin 29 pg (27-31); Mean Corpuscular Volume 89 fL (80-97); Platelet Count 383 10^3/uL (150-450); Red Blood Count 3.43 10^6 /uL (3.70-4.87); Red Cell Distribution Width 15 % (10-15); White Blood Count 9.7 10^3/uL (3.5-10.8)
[2022-02-13 06:48] LABS: Potassium 3.7 mmol/L (3.5-5.0)
[2022-02-13 06:49] LABS: Albumin 2.4 g/dL (3.2-5.2); Albumin/Globulin Ratio 0.8 (1-3); Globulin 2.9 g/dL (2-4); Magnesium 1.7 mg/dL (1.9-2.7); Phosphorus 1.8 mg/dL (2.5-5.0); Total Bilirubin 0.6 mg/dL (0.2-1.0); Total Protein 5.3 g/dL (6.4-8.9); eGFR CKD-EPI 105.4 (>60)
[2022-02-13 06:53] LABS: Vancomycin Trough 3.5 mcg/mL; eGFR CKD-EPI 105.4 (>60)
[2022-02-13] MEDS: Acetaminophen IV 1 GM/100ML 1,000 MG/100 ML BAG IV PRN (06:54)
[2022-02-13] MEDS ORDERED: Magnesium Sulfate IV 3 GM in NS 0.9% 100 ml BAG 100 ML IVPB ONE (07:38)
[2022-02-13] MEDS ORDERED: Sodium Phosphate IV 15 MMOLE in NS 0.9% 250 ml 250 ML IV ONE (07:38)
[2022-02-13] MEDS ORDERED: Magnesium Sulfate 2 GM IV (Premix) IVPB ONE (08:00)
[2022-02-13] MEDS: Vancomycin 750 MG in NS 0.9% 250 ML IVPB SCH (08:11)
[2022-02-13] MEDS ORDERED: Magnesium Sulfate 1 GM IV 1 GM/100 ML BAG IV ONE (09:00)
[2022-02-13] MEDS ORDERED: Midazolam 10 mg/10 ml VIAL 1 mg/ml 10 ml VIAL (10 mg) ONE (10:00)
[2022-02-13] MEDS: Pantoprazole VIAL 40 MG VIAL IV SCH (10:05)
[2022-02-13] MEDS ORDERED: Succinylcholine 200 mg VIAL 20 mg/ml 10 ml VIAL (200 mg) ONE (10:10)
[2022-02-13] MEDS ORDERED: EPINEPHrine SYR 0.1MG/ML 10 ml SYRINGE ONE (10:10)
[2022-02-13] MEDS ORDERED: Levalbuterol 0.63MG/3ML NEB UNIT OF USE INH ONE (10:36)
[2022-02-13] MEDS ORDERED: Levalbuterol 1.25MG/0.5ML NEB.SOL ONE (10:36)
[2022-02-13] MEDS ORDERED: Ketamine HCL 50 mg/ml 10 ml VIAL (500 MG) ONE (10:37)
[2022-02-13] MEDS ORDERED: Buffered Lidocaine 1% SYRIN 1 ml INTRADERM ONE (10:39)
[2022-02-13] MEDS ORDERED: Levalbuterol 1.25MG/0.5ML NEB.SOL INH ONE (10:39)
[2022-02-13] MEDS ORDERED: Lactated Ringers 1000 ml BAG 1,000 ML IV SCH (11:00)
[2022-02-13] MEDS ORDERED: Methylene Blue 0.5 % 50 MG/10 ML AMP IV ONE (11:17)
[2022-02-13] MEDS ORDERED: Bupivacaine 0.25% EPI 200,000 30 ML SDV ONE (11:18)
[2022-02-13] MEDS ORDERED: Vancomycin 1000 MG in NS 0.9% 250 ML IVPB SCH (16:00)
[2022-02-13] MEDS ORDERED: Furosemide 20 mg/2 ml IV VIAL IV SLOW PU ONE (18:20)
[2022-02-13] MEDS: Lidocaine PATCH 5% PATCH TRANSDERM SCH ×2 (18:32→18:33)
[2022-02-13] MEDS ORDERED: Enoxaparin 40 MG/0.4 ML SYR SUBCUT SCH (21:00)
[2022-02-13] MEDS: Enoxaparin 60 MG/0.6 ML SYR SUBCUT SCH (22:23)
[2022-02-14] MEDS: Morphine 2 MG/ML SYRINGE IV PRN ×2 (00:38→18:23)
[2022-02-14] MEDS: LORazepam 2 mg VIAL 1 ml IV PUSH PRN ×2 (00:41→21:59)
[2022-02-14] MEDS: Metoprolol Tartrate 5 mg VIAL 5 ml VIAL (1 mg/ml) IV SCH ×4 (03:22→22:13)
[2022-02-14 07:24] LABS: Hematocrit 32 % (35-47); Hemoglobin 10.4 g/dL (12.0-16.0); Mean Corpuscular HGB Conc 33 g/dL (31-36); Mean Corpuscular Hemoglobin 29 pg (27-31); Mean Corpuscular Volume 89 fL (80-97); Mean Platelet Volume 7.1 fL (7.4-10.4); Platelet Count 397 10^3/uL (150-450); Red Blood Count 3.57 10^6 /uL (3.70-4.87); Red Cell Distribution Width 16 % (10-15); White Blood Count 10.1 10^3/uL (3.5-10.8)
[2022-02-14 07:59] LABS: Calcium 9.3 mg/dL (8.6-10.3); Magnesium 1.8 mg/dL (1.9-2.7); Phosphorus 2.3 mg/dL (2.5-5.0); Potassium 3.3 mmol/L (3.5-5.0); eGFR CKD-EPI 103.2 (>60)
[2022-02-14] MEDS ORDERED: Magnesium Sulfate 2 gm BAG 2 GM/50 ML BAG IVPB ONE (08:00)
[2022-02-14] MEDS: KCL 10 MEQ/50 ML IVPREMIX 10 MEQ/50 ML BAG IV SCH ×3 (10:09→15:44)
[2022-02-14] MEDS: Enoxaparin 60 MG/0.6 ML SYR SUBCUT SCH ×2 (10:10→22:01)
[2022-02-14] MEDS: Pantoprazole VIAL 40 MG VIAL IV SCH (10:10)
[2022-02-14] MEDS: Lidocaine PATCH 5% PATCH TRANSDERM SCH (10:13)
[2022-02-14] MEDS ORDERED: Potassium Chloride LIQUID 20 MEQ/15 ML LIQUID PO ONE (12:00)
[2022-02-14] MEDS ORDERED: Lidocaine 1% MPF 5 ML VIAL INJ ONE (12:26)
[2022-02-14 13:12] LABS: Glucose, BF 96 mg/dL
[2022-02-14 13:14] LABS: Total Protein, BF 2.9 g/dL
[2022-02-14] MEDS ORDERED: KCL 10 MEQ/50 ML IVPREMIX 10 MEQ/50 ML BAG ONE (15:37)
[2022-02-15] MEDS: Metoprolol Tartrate 5 mg VIAL 5 ml VIAL (1 mg/ml) IV SCH (06:06)
[2022-02-15 06:47] LABS: ABS Lymphocytes 0.4 10^3/ul (1.0-4.8); ABS Monocytes 0.6 10^3/ul (0-0.8); ABS Neutrophils 7.7 10^3/ul (1.5-7.7); Eosinophil % 0.5 %; Hematocrit 28 % (35-47); Hemoglobin 9.3 g/dL (12.0-16.0); Lymphocyte % 4.2 %; Mean Corpuscular HGB Conc 33 g/dL (31-36); Mean Corpuscular Hemoglobin 29 pg (27-31); Mean Corpuscular Volume 88 fL (80-97); Mean Platelet Volume 7.1 fL (7.4-10.4); Platelet Count 362 10^3/uL (150-450); Red Blood Count 3.15 10^6 /uL (3.70-4.87); Red Cell Distribution Width 16 % (10-15); White Blood Count 8.6 10^3/uL (3.5-10.8)
[2022-02-15] MEDS: LORazepam 2 mg VIAL 1 ml IV PUSH PRN ×2 (06:48→18:24)
[2022-02-15 06:58] LABS: Calcium 8.6 mg/dL (8.6-10.3); Magnesium 1.7 mg/dL (1.9-2.7); Potassium 3.6 mmol/L (3.5-5.0); eGFR CKD-EPI 108.4 (>60)
[2022-02-15] MEDS ORDERED: Vancomycin Trough Check NOTE FOLLOW UP ONE (07:30)
[2022-02-15] MEDS ORDERED: Potassium Chloride LIQUID 20 MEQ/15 ML LIQUID PO ONE (08:36)
[2022-02-15] MEDS ORDERED: Magnesium Sulfate IV 3 GM in NS 0.9% 100 ml BAG 100 ML IVPB ONE (08:36)
[2022-02-15 10:20] LABS: C Reactive Protein 128.17 mg/L (<8.01)
[2022-02-15] MEDS: Lidocaine PATCH 5% PATCH TRANSDERM SCH (11:17)
[2022-02-15] MEDS: Morphine 2 MG/ML SYRINGE IV PRN ×2 (11:18→18:37)
[2022-02-15] MEDS: Lansoprazole SUSP ORALSYR 3 MG/ML G TUBE SCH (17:20)
[2022-02-15] MEDS ORDERED: Furosemide 20 mg/2 ml IV VIAL IV SLOW PU ONE ×2 (18:10→18:33)
[2022-02-15] MEDS ORDERED: Furosemide 20 mg/2 ml IV VIAL ONE (18:35)
[2022-02-16] MEDS: Morphine 2 MG/ML SYRINGE IV PRN ×2 (01:33→09:37)
[2022-02-16] MEDS ORDERED: Acetylcysteine INHALATION SOL 200 MG/ML NEB.SOLN 10 ML INH ONE (01:52)
[2022-02-16] MEDS ORDERED: Acetylcysteine INH SOL (RT) 200 MG/ML 4 ML VIAL INH ONE (02:34)
[2022-02-16] MEDS: LORazepam 2 mg VIAL 1 ml IV PUSH PRN ×3 (03:08→19:04)
[2022-02-16 06:16] LABS: ABS Eosinophils 0.1 10^3/ul (0-0.6); ABS Lymphocytes 0.4 10^3/ul (1.0-4.8); ABS Monocytes 0.7 10^3/ul (0-0.8); ABS Neutrophils 7.6 10^3/ul (1.5-7.7); Eosinophil % 0.8 %; Hematocrit 30 % (35-47); Hemoglobin 9.7 g/dL (12.0-16.0); Lymphocyte % 4.5 %; Mean Corpuscular HGB Conc 32 g/dL (31-36); Mean Corpuscular Hemoglobin 29 pg (27-31); Mean Corpuscular Volume 89 fL (80-97); Platelet Count 357 10^3/uL (150-450); Red Cell Distribution Width 16 % (10-15); White Blood Count 8.8 10^3/uL (3.5-10.8)
[2022-02-16 07:12] LABS: Albumin 2.5 g/dL (3.2-5.2); Albumin/Globulin Ratio 0.9 (1-3); Calcium 8.8 mg/dL (8.6-10.3); Globulin 2.9 g/dL (2-4); Magnesium 1.9 mg/dL (1.9-2.7); Phosphorus 2.1 mg/dL (2.5-5.0); Potassium 3.9 mmol/L (3.5-5.0); Total Bilirubin 0.4 mg/dL (0.2-1.0); Total Protein 5.4 g/dL (6.4-8.9); eGFR CKD-EPI 108.4 (>60)
[2022-02-16] MEDS: Lansoprazole SUSP ORALSYR 3 MG/ML G TUBE SCH (09:35)
[2022-02-16] MEDS: Acetaminophen IV 1 GM/100ML 1,000 MG/100 ML BAG IV PRN (18:01)
[2022-02-17] MEDS: Morphine 2 MG/ML SYRINGE IV PRN ×3 (05:27→21:05)
[2022-02-17 05:51] LABS: Albumin 2.6 g/dL (3.2-5.2); Albumin/Globulin Ratio 0.9 (1-3); Calcium 9.3 mg/dL (8.6-10.3); Magnesium 1.8 mg/dL (1.9-2.7); Total Bilirubin 0.5 mg/dL (0.2-1.0); Total Protein 5.6 g/dL (6.4-8.9); eGFR CKD-EPI 108.4 (>60)
[2022-02-17] MEDS ORDERED: Magnesium Sulfate 2 gm BAG 2 GM/50 ML BAG IVPB ONE (07:00)
[2022-02-17] MEDS: LORazepam 2 mg VIAL 1 ml IV PUSH PRN ×2 (07:50→18:13)
[2022-02-17] MEDS: Lansoprazole SUSP ORALSYR 3 MG/ML G TUBE SCH (08:32)
[2022-02-17] MEDS ORDERED: Magnesium Sulfate IV 3 GM in NS 0.9% 100 ml BAG 100 ML IVPB ONE (15:42)
[2022-02-18 06:12] LABS: ABS Lymphocytes 0.4 10^3/ul (1.0-4.8); ABS Monocytes 0.7 10^3/ul (0-0.8); ABS Neutrophils 8.6 10^3/ul (1.5-7.7); Eosinophil % 0.3 %; Hematocrit 28 % (35-47); Hemoglobin 9.3 g/dL (12.0-16.0); Lymphocyte % 3.7 %; Mean Corpuscular HGB Conc 33 g/dL (31-36); Mean Corpuscular Hemoglobin 29 pg (27-31); Mean Corpuscular Volume 89 fL (80-97); Mean Platelet Volume 7.1 fL (7.4-10.4); Platelet Count 405 10^3/uL (150-450); Red Blood Count 3.19 10^6 /uL (3.70-4.87); Red Cell Distribution Width 16 % (10-15); White Blood Count 9.7 10^3/uL (3.5-10.8)
[2022-02-18] MEDS: Morphine 2 MG/ML SYRINGE IV PRN ×3 (06:23→21:06)
[2022-02-18 06:42] LABS: Albumin 2.5 g/dL (3.2-5.2); Albumin/Globulin Ratio 0.9 (1-3); Calcium 9.6 mg/dL (8.6-10.3); Globulin 2.9 g/dL (2-4); Potassium 3.8 mmol/L (3.5-5.0); Total Bilirubin 0.5 mg/dL (0.2-1.0); Total Protein 5.4 g/dL (6.4-8.9); eGFR CKD-EPI 107.1 (>60)
[2022-02-18] MEDS ORDERED: Metoprolol Tartrate 5 mg VIAL 5 ml VIAL (1 mg/ml) ONE (07:08)
[2022-02-18] MEDS: LORazepam 2 mg VIAL 1 ml IV PUSH PRN ×2 (07:49→15:45)
[2022-02-18] MEDS: Lansoprazole SUSP ORALSYR 3 MG/ML G TUBE SCH (08:53)
[2022-02-18 09:11] LABS: High Sensitivity Troponin 1 Hr 12 pg/mL (<15)
[2022-02-18 10:27] LABS: High Sensitivity Troponin 3 Hr 14 pg/mL (<15)
[2022-02-18] MEDS ORDERED: Ondansetron 4 mg VIAL 2 MG/ML 2 ml VIAL IV PRN (13:12)
[2022-02-18] MEDS ORDERED: oxyCODONE/Acetamin 5/325 mg TAB PO PRN (13:12)
[2022-02-18] MEDS ORDERED: Naloxone 0.4 mg VIAL 0.4 mg/ml 1 ml VIAL IV PRN (13:12)
[2022-02-18] MEDS ORDERED: fentaNYL 100 mcg/2 ml 50 MCG/ML VIAL IV PRN (13:12)
[2022-02-19] MEDS: LORazepam 2 mg VIAL 1 ml IV PUSH PRN ×3 (04:22→21:54)
[2022-02-19] MEDS ORDERED: Lactated Ringers 1000 ml BAG 1,000 ML IV SCH (06:00)
[2022-02-19] MEDS ORDERED: Buffered Lidocaine 1% SYRIN 1 ml INTRADERM ONE (06:00)
[2022-02-19] MEDS: Morphine 2 MG/ML SYRINGE IV PRN ×2 (06:26→11:02)
[2022-02-19 06:34] LABS: ABS Lymphocytes 0.3 10^3/ul (1.0-4.8); ABS Monocytes 0.6 10^3/ul (0-0.8); ABS Neutrophils 8.8 10^3/ul (1.5-7.7); Eosinophil % 0.3 %; Hematocrit 29 % (35-47); Hemoglobin 9.5 g/dL (12.0-16.0); Lymphocyte % 3.5 %; Mean Corpuscular HGB Conc 33 g/dL (31-36); Mean Corpuscular Hemoglobin 29 pg (27-31); Mean Corpuscular Volume 90 fL (80-97); Mean Platelet Volume 7.7 fL (7.4-10.4); Platelet Count 382 10^3/uL (150-450); Red Blood Count 3.25 10^6 /uL (3.70-4.87); Red Cell Distribution Width 16 % (10-15); White Blood Count 9.8 10^3/uL (3.5-10.8)
[2022-02-19 06:56] LABS: eGFR CKD-EPI 107.1 (>60)
[2022-02-19] MEDS: Lansoprazole SUSP ORALSYR 3 MG/ML G TUBE SCH (08:00)
[2022-02-19] MEDS ORDERED: Metoprolol Tartrate 5 mg VIAL 5 ml VIAL (1 mg/ml) IV ONE (12:33)
[2022-02-19] MEDS ORDERED: Metoprolol Tartrate 5 mg VIAL 5 ml VIAL (1 mg/ml) ONE ×3 (12:35→16:17)
[2022-02-19] MEDS ORDERED: Ketamine HCL 50 mg/ml 10 ml VIAL (500 MG) ONE (13:44)
[2022-02-19] MEDS ORDERED: fentaNYL 100 mcg/2 ml 50 MCG/ML VIAL ONE (13:44)
[2022-02-19] MEDS ORDERED: Midazolam 2 mg/2 ml VIAL 1 mg/ml 2 ml VIAL (2 mg) ONE ×2 (13:44→13:45)
[2022-02-19] MEDS ORDERED: ceFAZolin 1 GM ADVAN 1 GM ADDV.VIAL IVPB ONE (15:06)
[2022-02-20] MEDS: Morphine 2 MG/ML SYRINGE IV PRN ×4 (02:19→20:04)
[2022-02-20 06:58] LABS: Calcium 10.6 mg/dL (8.6-10.3); Magnesium 1.7 mg/dL (1.9-2.7); Potassium 3.8 mmol/L (3.5-5.0); eGFR CKD-EPI 106.5 (>60)
[2022-02-20] MEDS ORDERED: Magnesium Sulfate IV 3 GM in NS 0.9% 100 ml BAG 100 ML IVPB ONE (07:17)
[2022-02-20] MEDS: LORazepam 2 mg VIAL 1 ml IV PUSH PRN ×3 (07:29→21:26)
[2022-02-20] MEDS: Lansoprazole SUSP ORALSYR 3 MG/ML G TUBE SCH (08:36)
[2022-02-20] MEDS ORDERED: Metoprolol Tartrate 5 mg VIAL 5 ml VIAL (1 mg/ml) ONE (17:56)
[2022-02-20] MEDS: Metoprolol Tartrate 5 mg VIAL 5 ml VIAL (1 mg/ml) IV SCH (17:59)
[2022-02-20] MEDS ORDERED: Metoprolol Tartrate 5 mg VIAL 5 ml VIAL (1 mg/ml) IV ONE (18:33)
[2022-02-20] MEDS ORDERED: Atropine 1% (ORAL/SL) 15 ML BTL SL PRN (18:34)
[2022-02-20 22:01] VITALS: BP 117/85
[2022-02-21] MEDS: LORazepam 2 mg VIAL 1 ml IV PUSH PRN ×3 (00:20→12:00)
[2022-02-21] MEDS: Morphine 2 MG/ML SYRINGE IV PRN ×14 (00:21→21:49)
== END 2022-02-21 22:23 | disposition expired | DRG 308 ==
LOC: ED 15:24 → EDHOLD 15:24 → SUATTDRO 21:40 → MEDTELE 02-05 01:04 → SUATTDRO 02-06 12:58
PROVIDERS: ADMIT Internal Medicine; ATTEND Internal Medicine